=== PATIENT | female | born 1985 | race Caucasian/White ===

== ENCOUNTER → 2016-11-23 | Outpatient (REF) | payer OTHER ==
[~2016-11-23] MED LIST: ARTI99.0 OU; CLAR500T PO; CYMB60CA3 PO; FLAG500T PO; FLUT1SPR2; NORCOTAB PO; SENN1TAB2 PO; TYLE325T5 PO; ZYRT10TA2 PO
== END ==
LOC: M LAB REF 16:43
PROVIDERS: ATTEND Physician Assistant Medical
DX: N39.0 Urinary tract infection, site not specified (principal)

== ENCOUNTER → 2018-06-19 | Outpatient (CLI) | payer OTHER ==
[~2018-06-19] MED LIST changes: +HYDR-3715 PO; -NORCOTAB PO; -SENN1TAB2 PO; +SENN1TAB40 PO; +ZYRT10CA5 PO; -ZYRT10TA2 PO
[2018-06-19 10:23] LABS: BASO % 0.5 % (0.0-1.0); EOS # 0.1 10^3/uL (0.0-0.50); EOS % 1.5 % (0.0-3.0); HEMATOCRIT 40.4 % (36.0-47.0); HEMOGLOBIN 12.8 g/dl (12.0-15.5); LYMPH # 2.7 10^3/uL (1.5-4.5); LYMPH % 36.3 % (24.0-44.0); MEAN CORPUSCULAR HEMOGLOBIN 27.1 pg (27.0-33.0); MEAN CORPUSCULAR HGB CONC 31.7 g/dl (32.0-36.5); MEAN CORPUSCULAR VOLUME 85.4 fl (80.0-96.0); MONO # 0.5 10^3/uL (0.0-0.8); MONO % 6.6 % (0.0-5.0); NEUTROPHILS # 4.1 10^3/uL (1.8-7.7); NEUTROPHILS % 54.7 % (36.0-66.0); PLATELET COUNT, AUTOMATED 359 10^3/uL (150-450); RED BLOOD COUNT 4.73 10^6/uL (4.00-5.40); WHITE BLOOD COUNT 7.5 10^3/uL (4.0-10.0)
[2018-06-19 10:39] LABS: ALBUMIN 3.9 GM/DL (3.2-5.2); ALT/SGPT 24 U/L (12-78); BILIRUBIN,TOTAL 0.5 MG/DL (0.2-1.0); BLOOD UREA NITROGEN 11 MG/DL (7-18); CALCIUM LEVEL 8.9 MG/DL (8.5-10.1); CARBON DIOXIDE LEVEL 30 MEQ/L (21-32); CHLORIDE LEVEL 106 MEQ/L (98-107); CHOLESTEROL LEVEL 182 MG/DL (<200); CHOLESTEROL RISK RATIO 2.563 (<5); CREATININE FOR GFR 0.56 MG/DL (0.55-1.30); FREE T4 1.14 NG/DL (0.76-1.46); GLOMERULAR FILTRATION RATE > 60.0 (>60); GLUCOSE, FASTING 74 MG/DL (70-100); HDL CHOLESTEROL 71 MG/DL (>40); LDL CHOLESTEROL 88 MG/DL (<100); NON-HDL-C 111 MG/DL; POTASSIUM SERUM 4.3 MEQ/L (3.5-5.1); SODIUM LEVEL 140 MEQ/L (136-145); TOTAL PROTEIN 7.2 GM/DL (6.4-8.2); TRIGLYCERIDES LEVEL 117 MG/DL (<150)
[2018-06-19 11:27] LABS: HEMOGLOBIN A1c 5.1 %
== END ==
LOC: M SMT 08:08
PROVIDERS: ATTEND Physician Assistant
DX: R53.83 Other fatigue (principal)

== ENCOUNTER → 2018-07-06 | Outpatient (REF) | payer OTHER ==
[2018-07-10 14:16] LABS: HPV HYBRID CAPTURE II Negative (Negative)
== END ==
LOC: M LAB REF 13:28
PROVIDERS: ATTEND Advanced Practice Midwife
DX: Z12.4 Encounter for screening for malignant neoplasm of cervix (principal); R87.610 Atypical squamous cells of undetermined significance on cytologic smear of cervix (ASC-US)
CPT/HCPCS: 87624; G0123

== ENCOUNTER → 2019-07-19 | Outpatient (REF) | payer OTHER ==
[~2019-07-19] MED LIST changes: -ARTI99.0 OU; -CLAR500T PO; +CLAR500T97 PO; +POLYOPD OU; +SENN-53 PO; -SENN1TAB40 PO
== END ==
LOC: M SFHCWAGY 17:30
PROVIDERS: ATTEND Advanced Practice Midwife
DX: Z12.4 Encounter for screening for malignant neoplasm of cervix (principal)

== ENCOUNTER → 2019-11-22 | Outpatient (CLI) | payer OTHER ==
--- NOTE | 2019-11-27 12:43 | REP ---
RIGHT SHOULDER: 3-VIEWS HISTORY: Pain in the right shoulder. FINDINGS: The right glenohumeral and acromioclavicular joints are normally aligned. There is mild osteoarthritic hypertrophy at the superior aspect of the acromioclavicular (AC) joint. Periarticular soft tissues are unremarkable. No erosive changes seen. IMPRESSION: No acute bony abnormality. Mild osteoarthritic spurring at the acromioclavicular (AC) joint. Otherwise negative. MTDD
== END ==
LOC: M ADAMS 10:49
PROVIDERS: ATTEND Physician Assistant
DX: M25.511 Pain in right shoulder (principal)

== ENCOUNTER 2020-05-16 17:34 | Inpatient (IN) | payer OTHER ==
[~2020-05-16] VITALS: Ht 160 cm; Wt 111.0 kg
[2020-05-16] MEDS ORDERED: PERCOCET 5MG/325MG TAB PO ONE (17:45)
[2020-05-16] MEDS ORDERED: IBUPROFEN 400MG TAB PO ONE (17:45)
--- NOTE | 2020-05-16 18:13 | REP ---
INDICATION: fall COMPARISON: None. TECHNIQUE: There are four views FINDINGS: There is a trimalleolar fracture with lateral and posterior subluxation of the talus. Calcaneal plantar and Achilles spurs are incidentally noted. IMPRESSION: Negative . <Electronically signed by Hema Ortega > 05/16/20 2030
[2020-05-16] MEDS ORDERED: propofoL 200 MG/20 ML VIAL IV ONE (18:20)
[2020-05-16] MEDS ORDERED: ZOLP10TA2 PO (19:42)
[2020-05-16] MEDS ORDERED: FLUO40CA PO (19:42)
[2020-05-16] MEDS ORDERED: OMEP-221 PO (19:42)
[2020-05-16] MEDS ORDERED: FLUTISP (19:42)
[2020-05-16] MEDS ORDERED: ALPR0.5T3 PO (19:42)
[2020-05-16] MEDS ORDERED: MULTCHW12 PO (19:43)
--- NOTE | 2020-05-16 20:06 | CR.PDOC ---
General Date of Consultation: May 16, 2020 Consultation REASON FOR CONSULTATION/CHIEF COMPLAINT: Right ankle fracture HISTORY OF PRESENT ILLNESS: The patient reports that earlier today she was sitti ng on her couch and she got up from the couch and slipped on a linoleum-type floor which resulted in an ankle fracture. She was unable to weight-bear and was brought to the emergency room. She demonstrated a clear deformity of the right ankle with swelling. I was consulted by the emergency room for evaluation of a trimalleolar ankle fracture. She denies any previous injuries to her right ankle or any previous surgeries. ALLERGIES: Please see below. HOME MEDICATIONS: Please see below. PAST MEDICAL HISTORY: Noncontributory SOCIAL HISTORY: Marital status and/or living arrangements: Patient has a fianc and I believe that she is currently living with her mother as her fianc is currently deployed. Tobacco use: Denies REVIEW OF SYSTEMS: The patient denies any other symptoms other than that associated with the right ankle injury mentioned in the HPI. PHYSICAL EXAMINATION: The patient is alert and oriented to person, place and time. Constitutional: The patient appears their stated age. They are casually dressing, comfortable and cooperative, in no acute distress. Psychiatric: Appropriate affect with good eye contact. Ambulation: Nonambulatory due to fracture Head, ears, eyes, nose, and throat: Head is normocephalic, atraumatic. Eyes: Pupils equal. Sclerae anicteric. Mouth: Not assessed due to masking Neck: Supple with full range of motion. Skin: Clean, dry, and intact with no abrasions or ulcerations. Lungs: Breathing is unlabored with symmetric chest expansion on inspiration. Cardiovascular: Palpable posterior and dorsalis pedis pulse. Capillary refill is less than 3 seconds. Neurologic: The patient is able to grossly move the right toes with pain and discomfort. Sensation is intact to light touch in the L4-S1 dermatome distribution to the right foot. Lymph: No palpable popliteal lymphadenopathy. Musculoskeletal: The right foot and ankle was examined. On inspection, there was a small 1 mm area of scabbing which did not appear to be associated with an open or puncture type injury. He was abrasion of the skin in this area as well. There was some swelling about the ankle, but this was minimal. Moderate. There is no significant bruising at this time. The ankle was held in a dorsiflexed position. Please see above. With regards to neurovascular examination. Examination of the right ankle was limited secondary to pain. There was an obvious deformity noted to the ankle. LABORATORY DATA: Please see below. X-ray: X-ray imaging was independently reviewed by myself. This demonstrated a displaced trimalleolar ankle fracture with less than 25% involvement of the posterior malleolus. There was a medial malleolus fragment, which was completely displaced. Was possible fragmentation. There is also a lateral fibular fracture. There was oblique and distal, roughly at the level of the joint line. There is also noted to be some dorsiflexion with some subluxation of the talus within the ankle mortise. ASSESSMENT/PLAN: 1. This patient demonstrates a right ankle trimalleolar fracture with associated instability and subluxation of the talus within the ankle mortise. I had a discussion with the patient with regards to the plan. I did explain that trimalleolar ankle fractures are unstable fractures that are best treated with open reduction and internal fixation. To reduce the risk of neurovascular compromise and swelling as well as risks of compartment syndrome. I stated that we would be performing a closed reduction and splinting. I explained that the risks of this procedure included but were not limited to, neurovascular compromise, compartment syndrome, skin irritation or damage are otherwise associated with the splinting. The fracture itself. Once the patient at an increased risk for blood or fat emboli as well as ankle arthritis. The patient consented to the close reduction under conscious sedation. Procedure: After a timeout was performed, the patient underwent conscious sedation as provided by the emergency room staff. Once the patient had the conscious sedation, I was assisted in performing a closed reduction. The patient's right leg was brought into knee flexion with manipulation of the ankle by grasping the great toe. This help with the reduction, but it was noted that there was a little bit of difficulty maintaining the foot and ankle in a neutral position. I suspected that there may be some soft tissue interposition in the tibiotalar joint. The foot was brought into slight internal rotation and the fracture was compressed and held in position until the splinting material, which was applied dried. The skin was wrapped in [place] with the bony prominences being padded. The back slab and sugar tong slab was applied and the ankle was held in return reduced and compressed position. As the plaster cured. This was covered and web roll and then a tensor dressing was loosely applied over this. By the end of the splinting, the patient was aware and talking. She was able to confirm that she was neurovascularly intact grossly and able to move her toes with a Refill less than 3 seconds and sensation intact to the deep peroneal nerve distribution. X-ray imaging was obtained in the emergency room. This demonstrated on the AP that the ankle mortise appeared to be restored. There did appear to be a small piece of comminution off the medial malleolus. The lateral view did show that the foot was in equinus and there is still some increased joint space in the tibiotalar joint. I suspect there may be some soft tissue interposition. Due to the increased space at the tibiotalar joint, I would like to admit the patient and book her for surgery tomorrow morning, so that she has not lost to follow-up as the reduction is most important in decreasing the risk of developing posttraumatic arthritis. The emergency room provider stated that they will contact the hospitalist service for admission of the patient. The patient is unable to have surgical intervention this evening as she last ate pizza at approximately 1600 hrs., the patient was instructed to be nothing by mouth at midnight. Advised to rest, elevate and ice the right lower extremity. CSM checks will be performed. The patient will be on-call to the OR tomorrow morning for open reduction and internal fixation. The emergency room provider stated that they would order COVID testing Of note, prior to the closed reduction and splinting. I obtained consent from the patient for open reduction and internal fixation of the right ankle. The risks of this procedure include but are not limited to infection, blood loss, neurovascular damage including foot drop and loss of sensation, fracture and need for revision surgery or additional surgeries. There are also risks associated with compartment syndrome, and development of posttraumatic arthritis. The patient was also consented for blood transfusion. Thank you for referring this patient to my care, This document contains text that was generated through computerized voice- recognition software. Despite it being proofread, undetected computer-generated errors may exist. Please contact our office at [phone] if any clarification or correction is required. Vital Signs/I&O Vital Signs Date Time Temp Pulse Resp B/P (MAP) Pulse Ox O2 Delivery O2 Flow Rate FiO2 05/16/20 19:25 144/78 (100) 05/16/20 19:24 103 96 05/16/20 19:20 18 Room Air 05/16/20 19:10 4.0 05/16/20 17:44 98.5 Laboratory Data Labs 24H Laboratory Tests 2 05/16/20 18:43: POC Beta HCG, Quantitative < 5.0 Allergies Coded Allergies: Sulfa (Sulfonamide Antibiotics) (Verified Allergy, Unknown, 05/16/20) cefaclor (Verified Allergy, Unknown, 05/16/20) sulfamethoxazole (Verified Allergy, Unknown, 05/16/20) trimethoprim (Verified Allergy, Unknown, 05/16/20) Home Medications Scheduled Fluoxetine Hcl (Fluoxetine HCl) 40 Mg Capsule, 40 MG PO DAILY, (Reported) Fluticasone Propionate (Fluticasone Propionate) 16 Gm [place].susp, 2 SPRAYS NA DAILY, (Reported) Folic Acid/Multivit-Min/Lutein (Multi-Vitamin Gummies) 1 Each Tab.chew, 1 CHW PO DAILY, (Reported) Omeprazole (Omeprazole) 40 Mg Capsule.dr, 40 MG PO DAILY, (Reported) Scheduled PRN Alprazolam (Alprazolam) 0.5 Mg Tablet, 0.5 MG PO BID PRN for ANXIETY, (Reported) Zolpidem Tartrate (Zolpidem Tartrate) 10 Mg Tablet, 10 MG PO QHS PRN for SLEEP, (Reported) HERMAN SCHREIBER MD May 16, 2020 20:06
[2020-05-16] MEDS ORDERED: ONDANSETRON 4MG/2ML VIAL IV ONE (20:30)
[2020-05-16] MEDS ORDERED: MORPHINE 4 MG/ML 1ML VIAL/SYRINGE (J2270) IV PRN (20:30)
[2020-05-16 20:43] LABS: HEMATOCRIT 38.2 % (36.0-47.0); HEMOGLOBIN 12.2 g/dl (12.0-15.5); MEAN CORPUSCULAR HEMOGLOBIN 27.4 pg (27.0-33.0); MEAN CORPUSCULAR HGB CONC 31.9 g/dl (32.0-36.5); MEAN CORPUSCULAR VOLUME 85.8 fl (80.0-96.0); PLATELET COUNT, AUTOMATED 353 10^3/uL (150-450); RED BLOOD COUNT 4.45 10^6/uL (4.00-5.40); WHITE BLOOD COUNT 9.2 10^3/uL (4.0-10.0)
[2020-05-16 21:11] LABS: INR 0.88; PROTHROMBIN TIME 12.1 SECONDS (12.5-14.3)
[2020-05-16 21:14] LABS: ALBUMIN 3.4 GM/DL (3.2-5.2); ALT/SGPT 43 U/L (12-78); BILIRUBIN,DIRECT 0.1 MG/DL (0.0-0.2); BILIRUBIN,TOTAL < 0.1 MG/DL (0.2-1.0); BLOOD UREA NITROGEN 9 MG/DL (7-18); CALCIUM LEVEL 7.9 MG/DL (8.5-10.1); CARBON DIOXIDE LEVEL 22 MEQ/L (21-32); CHLORIDE LEVEL 110 MEQ/L (98-107); CREATININE FOR GFR 0.43 MG/DL (0.55-1.30); GLOMERULAR FILTRATION RATE > 60.0 (>60); GLUCOSE, FASTING 96 MG/DL (70-100); POTASSIUM SERUM 4.1 MEQ/L (3.5-5.1); SODIUM LEVEL 141 MEQ/L (136-145); TOTAL PROTEIN 6.7 GM/DL (6.4-8.2)
[2020-05-16 21:21] LABS: RSV AMPLIFICATION NEGATIVE (NEGATIVE)
[2020-05-16] MEDS ORDERED: ACETAMINOPHEN TAB 650MG DOSE (2X325MG) PO PRN (21:35)
[2020-05-16] MEDS ORDERED: ONDANSETRON 4MG/2ML VIAL IV PRN (21:35)
[2020-05-16] MEDS ORDERED: MAALOX 30 ML SUSP *UDC PO PRN (21:35)
[2020-05-16] MEDS ORDERED: MOM 30ML SUSPENSION UDC PO PRN (21:35)
[2020-05-16] MEDS ORDERED: MORPHINE 2 MG/ML 1ML VIAL (J2270) IV PRN (21:35)
--- NOTE | 2020-05-16 21:46 | HPEPDOC ---
[facility] Medical History & Physical Date of Admission May 16, 2020 Date of Service: May 16, 2020 Attending Physician: DONOVAN BREWER MD History and Physical CHIEF COMPLAINT: fall HISTORY OF PRESENT ILLNESS: 34 year old female who presented to the ED after a mechanical fall today. She states she got up from the couch and was walking across a linoleum floor when she felt her ankle roll and she fell down. She denies any lightheadedness or dizziness before the fall. She states she had a sharp sudden pain in her ankle as she began to fall down. She states she was unable to bear weight on her right foot after the fall. She denies any additional injuries or hitting her head during the fall. She denies any other recent falls or injuries. She denies any prior broken bones. She does report having 2-3 glasses of wine today prior to the fall but does not feel she was intoxicated. PAST MEDICAL HISTORY: Depression/Anxiety GERD Insomnia PAST SURGICAL HISTORY: Cholecystectomy SOCIAL HISTORY: Never smoker. Drinks 2-3 glasses of wine on some weekends, no daily alcohol intake. Denies IVDA or illicit substance use. Lives at home with her son and one dog. FAMILY HISTORY: Reviewed and noncontributory ALLERGIES: Please see below. REVIEW OF SYSTEMS: CONSTITUTIONAL: Denies fevers, chills, night sweats, fatigue, unexpected change in weight. HEENT: Denies change in vision, change in hearing. CARDIOVASCULAR: Denies chest pain, palpitations, shortness of breath, lightheadedness. RESPIRATORY: Denies dyspnea, cough, wheezing. GASTROINTESTINAL: Denies nausea, vomiting, abdominal pain, diarrhea, constipation, blood in stool. GENITOURINARY: Denies dysuria, urinary frequency, urinary urgency. SKIN: Denies rash, lesions. MUSCULOSKELETAL: Per HPI. NEUROLOGICAL: Denies headache, dizziness, weakness. PSYCHIATRIC: Denies change in mood. HOME MEDICATIONS: Please see below. PHYSICAL EXAMINATION: VITAL SIGNS: see below GENERAL: Alert, comfortable, in no acute distress HEENT: Normocephalic, atraumatic, sclera anicteric, moist mucous membranes NECK: Supple, trachea midline, no lymphadenopathy CARDIOVASCULAR: Regular rate and rhythm, normal S1 and S2. No murmurs, rubs, or gallops RESPIRATORY: Clear to auscultation bilaterally with equal air entry bilaterally. No wheezing, rhonchi, or rales. ABDOMEN: Soft, nontender, nondistended, bowel sounds present. EXTREMITIES: Right leg wrapped in a splint and cassidy bandage. Cap refill less than two seconds in bilateral fingers and toes. NEUROLOGIC: Alert and oriented x3 to person, place and time. No focal deficits appreciated PSYCHIATRIC: Mood and affect appropriate LABORATORY DATA: See below. IMAGING: (per radiologist report) - Ankle XR: There is a trimalleolar fracture with lateral and posterior subluxation of the talus. MICROBIOLOGY: Please see below. ASSESSMENT: 34 year old female who presented after a mechanical fall found to have trimalleolar fracture on the right ankle admitted for possible surgical reduction. PLAN: 1. Trimalleolar fracture on the right ankle - s/p closed reduction with splinting in the ED - plan for ORIF by Dr. Engle/orthopedic surgery tomorrow AM - NPO for surgery. IV morphine overnight for pain. IV zofran for nausea 2. Depression/anxiety - hold home meds while NPO 3. GERD - hold home meds while NPO DVT prophylaxis: teds/scds on left leg preop, hold on medical prophylaxis preop. Disposition: admitted inpatient to med/surg pending surgical intervention Vital Signs Vital Signs Date Time Temp Pulse Resp B/P (MAP) Pulse Ox O2 Delivery O2 Flow Rate FiO2 05/16/20 20:50 18 05/16/20 20:25 101 150/83 (105) 97 Room Air 05/16/20 19:10 4.0 05/16/20 17:44 98.5 Laboratory Data Labs 24H Laboratory Tests 2 05/16/20 18:43: POC Beta HCG, Quantitative < 5.0 05/16/20 20:35: Nucleated Red Blood Cells % (auto) 0.0, Prothrombin Time 12.1, Prothromb Time In ternational Ratio 0.88, Anion Gap 9, Glomerular Filtration Rate > 60.0, Calcium Level 7.9L, Direct Bilirubin 0.1, Aspartate Amino Transf (AST/SGOT) 75H, Alanine Aminotransferase (ALT/SGPT) 43, Alkaline Phosphatase 85, Total Protein 6.7, Albumin 3.4, Albumin/Globulin Ratio 1.0L, Coronavirus (COVID-19)(PCR) NEGATIVE, Influenza Type A (RT-PCR) NEGATIVE, Influenza Type B (RT-PCR) NEGATIVE, Respiratory Syncytial Virus (PCR) NEGATIVE CBC/BMP Laboratory Tests 05/16/20 20:35 Home Medications Scheduled Fluoxetine Hcl (Fluoxetine HCl) 40 Mg Capsule, 40 MG PO DAILY Fluticasone Propionate (Fluticasone Propionate) 16 Gm [place].susp, 2 SPRAYS NA DAILY Folic Acid/Multivit-Min/Lutein (Multi-Vitamin Gummies) 1 Each Tab.chew, 1 CHW PO DAILY Omeprazole (Omeprazole) 40 Mg Capsule.dr, 40 MG PO DAILY Scheduled PRN Alprazolam (Alprazolam) 0.5 Mg Tablet, 0.5 MG PO BID PRN for ANXIETY Zolpidem Tartrate (Zolpidem Tartrate) 10 Mg Tablet, 10 MG PO QHS PRN for SLEEP Allergies Coded Allergies: Sulfa (Sulfonamide Antibiotics) (Verified Allergy, Unknown, 05/16/20) cefaclor (Verified Allergy, Unknown, 05/16/20) sulfamethoxazole (Verified Allergy, Unknown, 05/16/20) trimethoprim (Verified Allergy, Unknown, 05/16/20) GME ATTESTATION GME ATTESTATION My faculty preceptor for this patient encounter was physically present during the encounter and was fully available. All aspects of the patient interview, examination, medical decision making process, and medical care plan development were reviewed and approved by the faculty preceptor. The faculty preceptor is aware and concurs with the plan as stated in the body of this note and will attest to such by his/her cosignature. ATTENDING NOTE TIME OF SERVICE 905PM is a 34 yr old w a hx of depression/anxiety, GERD and class 2 obesity who slipped and developed a trimalleolar fx; she will be admitted for surgical management of the later. Plan: OR tomorrow per Rest per 's H&P RITU MARTIN D.O. May 16, 2020 21:46 DONOVAN BREWER MD May 16, 2020 23:21
[2020-05-16 22:50] VITALS: BP 146/83
[2020-05-17] VITALS (10 sets, daily range): BP systolic 124–158; BP diastolic 71–93; O2SAT 97–99
[2020-05-17] MEDS: MORPHINE 2 MG/ML 1ML VIAL (J2270) IV PRN ×2 (02:42→07:35)
[2020-05-17 07:10] LABS: HEMATOCRIT 36.1 % (36.0-47.0); HEMOGLOBIN 11.5 g/dl (12.0-15.5); MEAN CORPUSCULAR HEMOGLOBIN 27.3 pg (27.0-33.0); MEAN CORPUSCULAR HGB CONC 31.9 g/dl (32.0-36.5); MEAN CORPUSCULAR VOLUME 85.7 fl (80.0-96.0); PLATELET COUNT, AUTOMATED 329 10^3/uL (150-450); RED BLOOD COUNT 4.21 10^6/uL (4.00-5.40); WHITE BLOOD COUNT 8.3 10^3/uL (4.0-10.0)
--- NOTE | 2020-05-17 07:25 | REP ---
INDICATION: post reduction COMPARISON: Acute right ankle series dated 05/16/2020 TECHNIQUE: A two views post reduction. FINDINGS: There is a plaster cast stabilizing the trimalleolar fracture/subluxation in satisfactory position and alignment. The lateral view there is widening of the tibiotalar joint anteriorly. IMPRESSION: /a cast stabilizing the trimalleolar fracture/subluxation as described. <Electronically signed by Hema Ortega > 05/17/20 [id number]
--- NOTE | 2020-05-17 07:26 | REP ---
INDICATION: pre op. COMPARISON: None TECHNIQUE: Portable AP chest with the patient sitting FINDINGS: The lung tolbert are clear. Cardiac size is normal. The pb, mediastinum and skeletal structures are unremarkable. IMPRESSION: Essentially negative portable chest. <Electronically signed by Hema Ortega > 05/17/20 [id number]
[2020-05-17 07:34] LABS: BLOOD UREA NITROGEN 8 MG/DL (7-18); CALCIUM LEVEL 8.2 MG/DL (8.5-10.1); CARBON DIOXIDE LEVEL 27 MEQ/L (21-32); CHLORIDE LEVEL 106 MEQ/L (98-107); CREATININE FOR GFR 0.46 MG/DL (0.55-1.30); GLOMERULAR FILTRATION RATE > 60.0 (>60); GLUCOSE, FASTING 77 MG/DL (70-100); POTASSIUM SERUM 3.9 MEQ/L (3.5-5.1); SODIUM LEVEL 139 MEQ/L (136-145)
[2020-05-17] MEDS: DOCUSATE SODIUM 100MG CAPSULE PO SCH ×2 (07:35→20:54)
[2020-05-17] MEDS ORDERED: MIDAZOLAM INJ 2MG/2ML VIAL (J2250 PER 1MG) As Ordered ONE ×3 (07:50→12:15)
[2020-05-17] MEDS ORDERED: LIDOCAINE 2% 100MG/5ML SDV (FOR ANES.) As Ordered ONE (07:50)
[2020-05-17] MEDS ORDERED: propofoL 200 MG/20 ML VIAL As Ordered ONE ×6 (07:50→13:16)
[2020-05-17] MEDS ORDERED: ROCURONIUM BROMIDE 50 MG/5 ML VIAL As Ordered ONE (07:50)
[2020-05-17] MEDS ORDERED: fentaNYL 250 MCG/5 ML INJECTION (J3010) As Ordered ONE (07:50)
--- NOTE | 2020-05-17 08:21 | ECGEPIP ---
[facility] - ED Test Date: 2020-05-16 Pat Name: ANDRES BUSTAMANTE Department: Room: [place] [address] Gender: Female [employer] Equipment Operator: ZACHARY : 1985 Requested By: MORE CARMONA Order Number: [id number] Reading MD: Linda Chen Measurements Intervals [place] Rate: 98 P: 32 CO: 160 QRS: 39 QRSD: 90 T: -2 QT: 360 QTc: 459 Interpretive Statements Normal sinus rhythm Cannot rule out Anterior infarct , age undetermined NSTTW abnormalities similar 11/07/15 Electronically Signed on 05-17-2020 8:20:37 EDT by Linda Chen
--- NOTE | 2020-05-17 09:30 | IPNPDOC ---
Text Note Date of Service The patient was seen on 05/17/20. NOTE SUBJECTIVE: -Pain is well controlled -NPO for surgery OBJECTIVE: VITAL SIGNS: see below GENERAL: Alert, comfortable, in no acute distress HEENT: Normocephalic, atraumatic, sclera anicteric, moist mucous membranes NECK: Supple, trachea midline, no lymphadenopathy CARDIOVASCULAR: Regular rate and rhythm, normal S1 and S2. No murmurs, rubs, or gallops RESPIRATORY: Clear to auscultation bilaterally with equal air entry bilaterally. No wheezing, rhonchi, or rales. ABDOMEN: Soft, nontender, nondistended, bowel sounds present. EXTREMITIES: Right leg wrapped in a splint and cassidy bandage. WWP, good <2sec cap refill. NEUROLOGIC: Alert and oriented x3 to person, place and time. No focal deficits appreciated PSYCHIATRIC: Mood and affect appropriate LABORATORY DATA: Reviewed IMAGING: - Ankle XR: There is a trimalleolar fracture with lateral and posterior subluxation of the talus. MICROBIOLOGY: Please see below. ASSESSMENT: 34 year old W who presented after a mechanical fall and was found to have trimalleolar fracture on the right ankle admitted for surgical intervent ion. PLAN: 1. Trimalleolar fracture on the right ankle - s/p closed reduction with splinting in the ED - plan for ORIF by Dr. Engle/orthopedic surgery tthis AM - NPO for surgery. -V morphine PRN for pain. -IV zofran PRN for nausea 2. Depression/anxiety - continue home meds 3. GERD - continue home meds DVT prophylaxis: teds/scds on left leg preop. Will start heparin ppx postop Disposition: med/surg pending surgical intervention VS,Jorden, I+O VS, Jayashreee, I+O Laboratory Tests 05/16/20 20:35 05/17/20 06:26 Vital Signs Date Time Temp Pulse Resp B/P (MAP) Pulse Ox O2 Delivery O2 Flow Rate FiO2 05/17/20 07:45 16 05/17/20 06:00 97.8 76 124/71 (88) 98 Room Air 05/16/20 19:10 4.0 I&O- Last 24 Hours up to 6 AM 05/17/20 06:00 Intake Total 240 ml Output Total 1500 ml Balance -1260 ml CARLITO VARMA MD May 17, 2020 08:41
[2020-05-17 09:38] LABS: HEMOGLOBIN A1c 4.9 %
[2020-05-17] MEDS ORDERED: ceFAZolin 2 GM/D5W 50 ML IV BAG (J0690 PER 500MG) As Ordered ONE (09:57)
[2020-05-17] MEDS ORDERED: BUPIVACAINE/EPIN 0.5% 30 ML VIAL As Ordered ONE (09:58)
[2020-05-17] MEDS ORDERED: propofoL 500 MG/50 ML VIAL As Ordered ONE (11:06)
[2020-05-17] MEDS ORDERED: ACETAMINOPHEN 1000MG 100ML IV BTL (OFIRMEV) (J0131 PER 10MG) As Ordered ONE (11:12)
[2020-05-17] MEDS ORDERED: KETAMINE HCL 200 MG/20 ML VIAL As Ordered ONE (12:14)
[2020-05-17] MEDS ORDERED: HYDROmorphone HCL 2 MG/ML 1ML VIAL (J1170) As Ordered ONE (13:29)
--- NOTE | 2020-05-17 13:31 | REP ---
INDICATION: ORIF IN OR COMPARISON: 05/16/2020. TECHNIQUE: There are 3 intraoperative fluoroscopic views. FINDINGS: There is internal fixation of the distal fibula with a compression plate. There is internal fixation of the medial malleolus malleolus with 2 cannulated screws. The talar tilting and subluxation has been satisfactory reduced. The mortise is symmetric. Position and alignment of the fractures is satisfactory. Fluoroscopic exposure time is 109 seconds. IMPRESSION: Satisfactory open reduction and internal fixation of the right ankle. <Electronically signed by Hema Ortega > 05/17/20 [id number]
[2020-05-17] MEDS ORDERED: ONDANSETRON 4MG/2ML VIAL IV PRN (14:00)
[2020-05-17] MEDS ORDERED: fentaNYL 100 MCG/2 ML INJECTION (J3010) IV PRN (14:00)
[2020-05-17] MEDS ORDERED: oxyCODONE 5MG TAB PO PRN ×2 (14:00→16:45)
[2020-05-17] MEDS ORDERED: LR 1,000 ML IV SCH (14:00)
--- NOTE | 2020-05-17 14:19 | REP ---
INDICATION: s/p ORIF, please perform AP/Lat and mortise view COMPARISON: 05/16/2020 TECHNIQUE: There are three views performed portably. FINDINGS: There is internal fixation of the distal fibula with a compression plate. There is internal fixation of the medial malleolus with 2 cannulated screws. The posterior malleolus is in satisfactory position and alignment. The talar subluxation is been reduced. The mortise is symmetric. There is a plaster splint. IMPRESSION: The fractures are maintained in satisfactory position and alignment. The talar subluxation is been satisfactorily reduced. <Electronically signed by Hema Ortega > 05/17/20 [id number]
--- NOTE | 2020-05-17 14:47 | ROOPDOC ---
[facility] Report Of Operation Report of Operation DATE OF PROCEDURE: 05/17/20 PREPROCEDURE DIAGNOSES: Right ankle trimalleolar fracture POSTPROCEDURE DIAGNOSES: Right ankle trimalleolar fracture with noted due to comminution to the fibula and at the anteromedial angle of the ankle mortise. PROCEDURE: Open reduction and internal fixation of right ankle bimalleolar fracture Plate and screw fixation of lateral malleolus. Screw fixation of medial malleolus. Fluoroscopic examination of the syndesmosis joint. Limited direct examination and inspection of the tibiotalar joint SURGEON: Matt Schreiber MD AIRPLANE TECHNICIAN: Sandie Bill CST ANESTHESIA: Spinal ESTIMATED BLOOD LOSS: Approximately less than 150 mL COMPLICATIONS: No known complications REMARKS: ICD 10 modifier 22:50% more time and 50% more physical effort was utilized during this procedure. As a result of the fracture pattern and comminution. Components: A 3-hole [place] very asked distal fibular plate was utilized. A 3.5 mm screws included 210 mm screws, one 12 mm screw, 3, 14 mm screws and one 16 mm screw. The cannulated screws included 2, 4 x 42 mm screws. Tourniquet time was 37 minutes. It was only inflated for a short portion of the procedure, due to the fact that it was creating a venous tourniquet. PROCEDURE NOTE: The patient was seen in the preoperative area and her consent and her right lower extremity were reviewed and marked. DESCRIPTION OF PROCEDURE: The patient was brought to the operating room and after a timeout was performed. A spinal anesthetic was carried out. The patient was transferred to the table and positioned appropriately with appropriate padding and safety straps and measures. The splint was removed. The right leg was cleansed with chlorhexidine soap followed by an alcohol swab. She then had 2 chlorhexidine preps of the right foot and ankle, as performed by the nursing staff. The right lower extremity was prepped and draped in the standard sterile fashion. A tourniquet was applied and inflated as noted above. The patient received IV Ancef 2 g prior to incision. After a timeout and surgical safety checklist was performed, the medial and lateral malleoli were demarcated with a marker. A more posterior based incision was outlined. The skin was incised and dissecting scissors were used to go through layer by layer. There was a structure that couldn't possibly have been the superficial peroneal nerve that was crossing. However, this was more posterior than would've been anticipated. I protected this. Regardless, and it was taken anteriorly. The fracture site was identified. It was a very short oblique fracture with a spike posteriorly, which seemed to have a little bit of plastic deformity formation. There is also noted to be a rent in the peroneal fascia with some muscle herniating through. This was repaired with a #1 Vicryl suture. At the end of the case. Once the bone was identified, the periosteal elevator was used to elevate the soft tissues off the bone. Sharp dissection was used to clear the ends of the fracture with a 15 blade to remove soft tissue from getting stuck in the fracture site. The fracture was displaced and a dental pick was used to remove some material from the fracture site. This included clot and bony material. This was irrigated out. It was noted that the anterior aspect of the fibula had some comminution associated with it, possibly associated with soft tissue avulsion. The fracture pattern and made it slightly difficult to get an appropriate reduction. Some time was spent on this. Once that was achieved, it was held in position with the sharp reduction forceps. A 3.5 drill was used to overdrill the near cortex and an anterior to posterior fashion for lag screw by technique. This was then drilled with the 2.6 drill through the far cortex. A measuring device was utilized. A 22 mm screw was placed. A 3-hole distal fibula, very asked plate was chosen. This was appropriately positioned and secured with the first screw proximal to the fracture. An AP view on x-ray showed that the plate was too distal. Therefore, the screw was removed and the plate was shifted proximally. This was then secured with a fine K wire. The proximal screw to lag the plate down to the bone was chosen, again at a different site and resecured. This appeared to be in appropriate position on the AP view of the x-ray. It was noted that there was some slight anterior shift of the plate at the proximal end. However, this appeared to be where the precontoured plate had the best contact. The proximal nonlocking screws were drilled and placed. The distal 3 holes were then drilled and measured for the locking screws. When the final locking screws were placed. It was noted that the fracture site had torqued about a millimeter. I tried removing several screws and repositioning them to see if this could be corrected, but ultimately, I decided to remove the construct. This was not happy with that degree of displacement of the fracture. I spent some additional time retracting the change in the reduction to get it as near anatomic as possible. This involved utilization of a K wire as well as a reduction forceps. It was noted that the lag screw was loosening up, so this was removed. Fluoroscopy was again utilized to get the correct position of the plate to ensure that there was no overhang. This was again secured with a K wire. A locking screw was utilized to hold the plate in a compressed position. The posi tion was checked on AP and lateral fluoroscopy and found to be acceptable. The proximal 3 holes of the very asked plate were filled with locking screws to prevent any torque of the plate, which could displace the fracture. Locking screws were also placed distally. This resulted in a much more acceptable position of the distal fibular fracture, although there was still some displac ement of the posterior spike by a millimeter or 2. This was deemed acceptable. Under fluoroscopy, the syndesmosis joint was then tested with a sharp reduction forceps. There did not appear to be any opening of the syndesmosis joint. The lateral side was cleansed with several bulb syringes of normal sterile saline. Due to the fact that the patient was at risk for swelling of the soft tissues associated with the injury, I made the decision to close the lateral side prior to moving to the medial side. The superficial peroneal nerve-like structure was protected at the proximal portion without any sutures wrapped around or through it. #1 Vicryl was used to close the wound down in an interrupted manner. #1 Vicryl was also used to loosely cover the plate with the soft tissues. This was done using an interrupted suture. 2. 0 Vicryl was then used to close down the subcutaneous region followed by 3.0 antibacterial Monocryl for the subcuticular stitch. 0.5% Marcaine was used with epi for local anesthetic in the area of this incision. Attention was then turned to the medial aspect. Using fluoroscopy, the fracture site was identified with a freer. This area was marked on the skin with a skin marker and a curvilinear incision was made. The skin was incised and then the d issection scissors were used to carefully dissect down to the bone. Once the fracture site was identified. The subperiosteal elevator was used to remove some of the soft tissues from this area. A 15 blade was used to remove the soft tissues from the edges of the fracture site. The fracture site was opened. The intra-articular portion was examined. There was a cyst area where there was some flakes of some articular cartilage and some small pieces of comminuted bone at the corner of the ankle mortise. I did not see any obvious signs of impaction. However, visualization was limited. I removed the debris. The superior medial border of the talus also had a small area where there was some damage to the articular cartilage which was not full-thickness. I used a bulb syringe. Refilled several times to irrigate any debris from within the tibiotalar joint. A drill hole was made superficially in the proximal tibia on the medial aspect help with the reduction. After additional clearing of soft tissue is able to position the medial malleolus fracture fragment such that the fracture line was no longer easily appreciated. The sharp reduction forceps were used to compress this. There appeared to be a smooth border at the fracture site suggesting a good reduction on visualization and palpation. This was confirmed under fluoroscopy. Using the cannulated screw system, a K wire was advanced and the position was checked under fluoroscopy. The first K wire had good position. I did have to reposition the second K wire a few times as it was skydiving away from the cortical bone. I advanced the 40 mm cannulated screw, which was self drilling and self-tapping. With this in position. I reposition the second K wire and repeated the process with an additional 40 mm cannulated screw that was self drilling and self-tapping. This should've these 2 screws was divergent but appeared to be in good position on x-ray in both the AP and lateral films. AP and lateral fluoroscopic imaging of the ankle was then carried out. There appeared to be a good mortise view with no significant asymmetry noted. I did not notice any obvious loose bodies within the intra-articular portion of the joint. The posterior malleolus fracture appeared to close down and involve less than 25% of the surface of the bone without really seeming to involve any portion of the articular surface. There was no need to fix this posterior malleolar avulsion fracture. Having confirmed appropriate position on AP and lateral x-ray imaging, the medial wound was irrigated with normal sterile saline. #1 Vicryl sutures were used to close and approximate the subcutaneous tissue. A 2. 0 running Vicryl suture was then utilized followed by a subcuticular 3.0 antibacterial Monocryl suture. Additional 0.5% Marcaine with epinephrine was instilled into the soft tissue surrounding the medial incision. The wound edges were cleansed and Steri- Strips were applied to both sides. Adaptic and Telfa and Tegaderm dressings were applied to the medial lateral aspects. These were covered with ABDs pads. This was loosely wrapped with web roll and the patient was placed in a splint with a sugar tong and back slab splint. The patient was taken to the recovery room after anesthetic was reversed. She was seen in the recovery room and she was responsive and doing quite well. She was able to move her toes. She appeared to have Refill less than 3 seconds and she had sensation in the first webspace of her foot. Postoperative plan: The patient will be admitted back to the [facility]. I have written instructions for pain medications including oxycodone. She will receive 1 dose of IV antibiotic prior to discharge. The patient may be discharged home when stable. She should be discharged on oxycodone pain medication, and baby aspirin 81 mg by mouth twice daily for approximately 2 weeks. She may also take [id number] Tylenol and anti-inflammatories as needed. I have written for crutch instructions. She is to be nonweightbearing to right lower extremity for 6 weeks. She should rest, ice and elevate her right lower extremity at all times. She is not to get the splint wet. She will be seen in my office for reassessment in 2 weeks' time. At that point, the splint and the dressing will be taken down. She may be placed in a cast time or more likely a walking boot to remain nonweightbearing for the full 6 weeks. She will get x-ray imaging upon visiting the office as well. Her dressings will be taken down When She is seen in the office. There are no sutures that need to be removed. MATT SCHREIBER MD May 17, 2020 14:47
[2020-05-17] MEDS ORDERED: NS 1,000 ML IV SCH (16:45)
[2020-05-17] MEDS: oxyCODONE 5MG TAB PO PRN (16:47)
[2020-05-17] MEDS ORDERED: ceFAZolin SOD 1 GM in D5W MINI-BAG PLUS 50 ML IV SCH (16:50)
[2020-05-17] MEDS ORDERED: ceFAZolin SOD 1 GM in D5W MINI-BAG PLUS 50 ML IV ONE (18:00)
[2020-05-17] MEDS: ASPIRIN 81 MG CHEW TABLET PO SCH (20:54)
[2020-05-18 01:55] VITALS: BP 128/68
[2020-05-18] MEDS: oxyCODONE 5MG TAB PO PRN ×2 (01:59→08:01)
[2020-05-18 06:00] VITALS: BP 136/86
[2020-05-18 06:54] LABS: HEMATOCRIT 34.7 % (36.0-47.0); HEMOGLOBIN 10.8 g/dl (12.0-15.5); MEAN CORPUSCULAR HEMOGLOBIN 27.1 pg (27.0-33.0); MEAN CORPUSCULAR HGB CONC 31.1 g/dl (32.0-36.5); MEAN CORPUSCULAR VOLUME 87.2 fl (80.0-96.0); PLATELET COUNT, AUTOMATED 307 10^3/uL (150-450); RED BLOOD COUNT 3.98 10^6/uL (4.00-5.40); WHITE BLOOD COUNT 10.4 10^3/uL (4.0-10.0)
[2020-05-18 07:24] LABS: BLOOD UREA NITROGEN 8 MG/DL (7-18); CALCIUM LEVEL 8.4 MG/DL (8.5-10.1); CARBON DIOXIDE LEVEL 27 MEQ/L (21-32); CHLORIDE LEVEL 103 MEQ/L (98-107); CREATININE FOR GFR 0.43 MG/DL (0.55-1.30); GLOMERULAR FILTRATION RATE > 60.0 (>60); GLUCOSE, FASTING 85 MG/DL (70-100); POTASSIUM SERUM 3.8 MEQ/L (3.5-5.1); SODIUM LEVEL 138 MEQ/L (136-145)
[2020-05-18] MEDS: ASPIRIN 81 MG CHEW TABLET PO SCH (08:00)
[2020-05-18] MEDS: DOCUSATE SODIUM 100MG CAPSULE PO SCH (08:00)
[2020-05-18] MEDS ORDERED: OXYC-517 PO (09:15)
[2020-05-18] MEDS ORDERED: ASPI81CH8 PO (09:15)
--- NOTE | 2020-05-18 09:33 | DS.PDOC ---
Discharge Summary General Date of Admission May 16, 2020 at 21:00 Date of Discharge 05/18/2020 Attending Physician: CARLITO VARMA MD Discharge Summary PROCEDURES PERFORMED DURING STAY: Closed reduction of R ankle fracture in the ED, then R ankle ORIF on 05/17/2020 ADMITTING DIAGNOSES: R ankle fracture DISCHARGE DIAGNOSES: Right ankle trimalleolar fracture Depression/Anxiety GERD Insomnia COMPLICATIONS/CHIEF COMPLAINT: Trimalleolar Fracture. HISTORY OF PRESENT ILLNESS: 34 year old W who presented to the ED after a mechanical fall. She reported getting up from the couch and was walking across a linoleum floor when she felt her ankle roll and she fell down. She denied any lightheadedness or dizziness before the fall. She states she had a sharp sudden pain in her ankle as she began to fall down. She states she was unable to bear weight on her right foot after the fall. She denies any additional injuries or hitting her head during the fall. She denies any other recent falls or injuries. She denies any prior broken bones. She does report having 2-3 glasses of wine prior to the fall but does not feel she was intoxicated. HOSPITAL COURSE: In the ED she was found to have a right ankle trimalleolar fracture with associated instability and subluxation of the talus within the ankle mortise. Ortho was consulted and a closed reduction and splinting was performed on 05/16 in the ED and she had a R ankle ORIF on 05/17 without complications. She was started on BID ASA 81 that she will take for 14d and will follow up in ortho clinic. DISCHARGE MEDICATIONS: Please see below. ALLERGIES: Please see below. PHYSICAL EXAMINATION ON DISCHARGE: VITAL SIGNS: Please see below. GENERAL: Alert, comfortable, in no acute distress HEENT: Normocephalic, atraumatic, sclera anicteric, moist mucous membranes NECK: Supple, trachea midline, no lymphadenopathy CARDIOVASCULAR: Regular rate and rhythm, normal S1 and S2. No murmurs, rubs, or gallops RESPIRATORY: Clear to auscultation bilaterally with equal air entry bilaterally. No wheezing, rhonchi, or rales. ABDOMEN: Soft, nontender, nondistended, bowel sounds present. EXTREMITIES: Right leg wrapped in dressing. WWP, good <2sec cap refill. NEUROLOGIC: Alert and oriented x3 to person, place and time. No focal deficits appreciated PSYCHIATRIC: Mood and affect appropriate LABORATORY DATA: see below IMAGING: - Ankle XR: There is a trimalleolar fracture with lateral and posterior subluxation of the talus. PROGNOSIS: Good ACTIVITY: As tolerated DIET: regular DISCHARGE PLAN: Home with ortho follow up DISPOSITION: Home DISCHARGE INSTRUCTIONS: Home with ortho follow up ITEMS TO FOLLOWUP ON ON OUTPATIENT: R ankle fracture morbid obesity DISCHARGE CONDITION: Stable TIME SPENT ON DISCHARGE: 33 minutes. Vital Signs/I&Os Vital Signs Date Time Temp Pulse Resp B/P (MAP) Pulse Ox O2 Delivery O2 Flow Rate FiO2 05/18/20 08:01 16 05/18/20 06:00 98.2 77 136/86 (103) 98 Room Air 05/16/20 19:10 4.0 I&O- Last 24 Hours up to 6 AM 05/18/20 05:59 Intake Total 2690 ml Output Total 1750 ml Balance 940 ml Laboratory Data Labs 24H Laboratory Tests 2 05/18/20 06:15: Nucleated Red Blood Cells % (auto) 0.0, Anion Gap 8, Glomerular Filtration Rate > 60.0, Calcium Level 8.4L CBC/BMP Laboratory Tests 05/18/20 06:15 Discharge Medications Scheduled Aspirin (Children's Aspirin) 81 Mg Tab.chew, 81 MG PO BID Fluoxetine Hcl (Fluoxetine HCl) 40 Mg Capsule, 40 MG PO DAILY, (Reported) Fluticasone Propionate (Fluticasone Propionate) 16 Gm [place].susp, 2 SPRAYS NA DAILY, (Reported) Folic Acid/Multivit-Min/Lutein (Multi-Vitamin Gummies) 1 Each Tab.chew, 1 CHW PO DAILY, (Reported) Omeprazole (Omeprazole) 40 Mg Capsule.dr, 40 MG PO DAILY, (Reported) Scheduled PRN Alprazolam (Alprazolam) 0.5 Mg Tablet, 0.5 MG PO BID PRN for ANXIETY, (Reported) Oxycodone HCl (Oxycodone HCl) 5 Mg Tablet, 5 MG PO Q6H PRN for PAIN 5-7 Zolpidem Tartrate (Zolpidem Tartrate) 10 Mg Tablet, 10 MG PO QHS PRN for SLEEP, (Reported) Allergies Coded Allergies: Sulfa (Sulfonamide Antibiotics) (Verified Allergy, Unknown, 05/16/20) cefaclor (Verified Allergy, Unknown, 05/16/20) sulfamethoxazole (Verified Allergy, Unknown, 05/16/20) trimethoprim (Verified Allergy, Unknown, 05/16/20) CARLITO VARMA MD May 18, 2020 09:33
== END 2020-05-18 12:15 | disposition home or self-care (01) | DRG 313 ==
LOC: EDBD 17:34 → M ED 17:34 → M ED INP 21:00 → ENRESERV 22:09 → M MS5PR 22:46
PROVIDERS: ADMIT Internal Medicine; ATTEND Internal Medicine
PROC: 0QSJ04Z Reposition Right Fibula with Internal Fixation Device, Open Approach (ICD-10-PCS; principal; 2020-05-17 09:30)
DX: S82.851A Displaced trimalleolar fracture of right lower leg, initial encounter for closed fracture (principal); F32.9 Major depressive disorder, single episode, unspecified; W18.30XA Fall on same level, unspecified, initial encounter; Y92.008 Other place in unspecified non-institutional (private) residence as the place of occurrence of the external cause; F41.9 Anxiety disorder, unspecified; K21.9 Gastro-esophageal reflux disease without esophagitis; E66.9 Obesity, unspecified; Z20.822 Contact with and (suspected) exposure to COVID-19; Z79.899 Other long term (current) drug therapy; Z88.1 Allergy status to other antibiotic agents; Z88.2 Allergy status to sulfonamides; Z88.8 Allergy status to other drugs, medicaments and biological substances

== ENCOUNTER → 2020-05-27 | Outpatient (CLI) | payer OTHER ==
[~2020-05-27] MED LIST changes: +ALPR0.5T3 PO; +ASPI81CH8 PO; +FLUO40CA PO; +FLUTISP; +MULTCHW12 PO; +OMEP-221 PO; +OXYC-517 PO; +ZOLP10TA2 PO
== END ==
LOC: M SOG 15:49
PROVIDERS: ATTEND Family Medicine
DX: S82.851D Displaced trimalleolar fracture of right lower leg, subsequent encounter for closed fracture with routine healing (principal)

== ENCOUNTER → 2020-06-23 | Outpatient (CLI) | payer OTHER ==
--- NOTE | 2020-06-23 09:21 | REP ---
INDICATION: F/U FX. COMPARISON: 05/27/2020. TECHNIQUE: Four views right ankle. FINDINGS: Metallic internal fixation is again noted in the distal fibula and in the medial malleolus for healing fractures at those locations. Osseous structures are well-aligned. Ankle mortise is anatomic. Vague fracture lines are still visualized. Small calcific density is again seen anterior to the tibiotalar joint. There is calcaneal spurring again noted. IMPRESSION: Metallic internal fixation distal fibula and medial malleolus again noted for healing fractures at those locations which are again well aligned. <Electronically signed by Hema Dominguez > 06/23/20 0924
== END ==
LOC: M SOG 06-22 10:50
PROVIDERS: ATTEND Orthopaedic Surgery Adult Reconstructive Orthopaedic Surgery
DX: S82.851D Displaced trimalleolar fracture of right lower leg, subsequent encounter for closed fracture with routine healing (principal); X58.XXXD Exposure to other specified factors, subsequent encounter; Y92.9 Unspecified place or not applicable

== ENCOUNTER → 2020-06-29 | Outpatient (CLI) | payer OTHER ==
--- NOTE | 2020-06-29 12:05 | DEXAMM ---
INDICATION: M85.80 OTHER DISORDER OF BONE. COMPARISON: None. TECHNIQUE: Bone density was measured using dual-energy x-ray absorptionmetry (DEXA). FINDINGS: AP SPINE L1-L4 BMD 1.579 g/cm2 Young Adult T-Score 3.1 Age Matched Z-Score 3.1. LT FEMUR, TOTAL BMD 1.283 g/cm2 Young Adult T-Score 2.2 Age Matched Z-Score 2.4. LT NECK BMD 1.144 g/cm2 Young Adult T-Score 0.8 Age Matched Z-Score 1.1. RT FEMUR, TOTAL BMD 1.150 g/cm2 Young Adult T-Score 1.1 Age Matched Z-Score 1.3. RT NECK BMD 1.076 g/cm2 Young Adult T-Score 0.3 Age Matched Z-Score 0.6. IMPRESSION: There is normal bone density of the spine. There is normal bone density of the left hip. There is normal bone density of the right hip. FOLLOW-UP: Recommendation for the next bone density exam: 10 years. <Electronically signed by Leonel Levine > 06/29/20 [id number]
== END ==
LOC: M WHC 09:07
PROVIDERS: ATTEND Physician Assistant
DX: M85.80 Other specified disorders of bone density and structure, unspecified site (principal)

== ENCOUNTER → 2020-07-15 | Outpatient (CLI) | payer OTHER ==
--- NOTE | 2020-07-15 09:37 | REP ---
INDICATION: AFTERCARE. COMPARISON: 05/16/2020 TECHNIQUE: AP, lateral, bilateral oblique views of the right ankle. FINDINGS: Satisfactory open reduction and fixation for medial and lateral malleolar fractures. Residual soft tissue swelling noted. Underlying age-related changes identified. No acute fracture or dislocation. IMPRESSION: Satisfactory open reduction and fixation for bilateral malleolar fractures. <Electronically signed by Wallace Rg > 07/15/20 0926
== END ==
LOC: M SOG 09:00
PROVIDERS: ATTEND Orthopaedic Surgery Adult Reconstructive Orthopaedic Surgery
DX: Z48.89 Encounter for other specified surgical aftercare (principal); S82.841D Displaced bimalleolar fracture of right lower leg, subsequent encounter for closed fracture with routine healing

== ENCOUNTER → 2020-07-31 | Outpatient (REF) | payer OTHER | LOC: M SFHCWAGY 19:02 | PROVIDERS: ATTEND Advanced Practice Midwife | DX: Z12.4 Encounter for screening for malignant neoplasm of cervix (principal) ==

== ENCOUNTER → 2020-10-14 | Outpatient (CLI) | payer OTHER ==
--- NOTE | 2020-10-14 09:38 | REP ---
INDICATION: FX F/U. COMPARISON: 07/15/2020 TECHNIQUE: AP, lateral, bilateral oblique views of the right ankle FINDINGS: Orthopedic hardware along the distal fibula and at the medial malleolus are in stable position. Underlying fractures appear to have healed. No acute fracture or dislocation identified. 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 IMPRESSION: 1. Healed fractures. 2. Chronic stable arthritic degenerative changes. <Electronically signed by Wallace Rg > 10/14/20 0940
== END ==
LOC: M SOG 09:09
PROVIDERS: ATTEND Orthopaedic Surgery Adult Reconstructive Orthopaedic Surgery
DX: S82.851D Displaced trimalleolar fracture of right lower leg, subsequent encounter for closed fracture with routine healing (principal)

== ENCOUNTER → 2020-10-19 | Outpatient (CLI) | payer OTHER ==
--- NOTE | 2020-10-19 12:38 | REP ---
INDICATION: RT ANKLE FX RT LOWER LEG. COMPARISON: No prior CTs TECHNIQUE: 2 x 2 mm contiguous helical scanning through the right ankle with sagittal and coronal reconstruction FINDINGS: The previously described trimalleolar fracture has been openly reduced and internally fixed. The alignment is near anatomical. There is evidence of bony demineralization. The mortise is intact. None of the affixing screws breach a joint space. There is no evidence of a gross joint effusion. Plantar and retrocalcaneal heel spurs are identified. The subtalar joints are well aligned. There is no evidence of an acute fracture. IMPRESSION: Status post ORIF as described above. <Electronically signed by Valentín Arechiga > 10/19/20 [id number]
== END ==
LOC: M PLAIMG 11:04
PROVIDERS: ATTEND Orthopaedic Surgery Adult Reconstructive Orthopaedic Surgery
DX: S82.851D Displaced trimalleolar fracture of right lower leg, subsequent encounter for closed fracture with routine healing (principal); M77.31 Calcaneal spur, right foot; X58.XXXD Exposure to other specified factors, subsequent encounter; Y92.9 Unspecified place or not applicable; Y99.9 Unspecified external cause status; Y93.9 Activity, unspecified

== ENCOUNTER → 2020-11-04 | Outpatient (CLI) | payer OTHER ==
--- NOTE | 2020-11-04 09:39 | REP ---
INDICATION: RT ANKLE FX FOLLOW-UP. COMPARISON: Comparison ankle radiographs October 14, 2020. TECHNIQUE: Four views of the right ankle are provided. FINDINGS: Patient is status post screw plate fixation distal fibula and 2 metallic pins are seen in the medial malleolus as before. There is mild tibiotalar spurring visible on the lateral radiograph both anteriorly and posteriorly. Today's lateral view demonstrates a small os ossific density at the posterior ankle joint line, 3 mm in diameter. There is anterior soft tissue swelling. Large heel spurs are again noted. IMPRESSION: Post open reduction internal fixation. Spurring. <Electronically signed by Leonel Levine > 11/04/20 [id number]
== END ==
LOC: M SOG 08:52
PROVIDERS: ATTEND Orthopaedic Surgery Adult Reconstructive Orthopaedic Surgery
DX: S82.851D Displaced trimalleolar fracture of right lower leg, subsequent encounter for closed fracture with routine healing (principal); M77.31 Calcaneal spur, right foot; X58.XXXD Exposure to other specified factors, subsequent encounter; Y92.9 Unspecified place or not applicable; Y99.9 Unspecified external cause status; Y93.9 Activity, unspecified

== ENCOUNTER → 2020-11-13 | Outpatient (CLI) | payer OTHER ==
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
== END ==
LOC: M RAD 09:56
PROVIDERS: ATTEND Orthopaedic Surgery Adult Reconstructive Orthopaedic Surgery
DX: R22.41 Localized swelling, mass and lump, right lower limb (principal)

== ENCOUNTER 2021-01-18 02:01 | Emergency (ER) | payer OTHER ==
[~2021-01-18] VITALS: Ht 160 cm; Wt 100.0 kg
[~2021-01-18 02:01] MED LIST changes: -CYMB60CA3 PO; +CYMB60CA4 PO
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
[2021-01-18] MEDS ORDERED: LIDOCAINE 2% MDV 20ML VIAL SC ONE (04:20)
[2021-01-18 04:31] LABS: HEMATOCRIT 42.1 % (36.0-47.0); HEMOGLOBIN 13.4 g/dl (12.0-15.5); MEAN CORPUSCULAR HEMOGLOBIN 25.7 pg (27.0-33.0); MEAN CORPUSCULAR HGB CONC 31.8 g/dl (32.0-36.5); MEAN CORPUSCULAR VOLUME 80.7 fl (80.0-96.0); PLATELET COUNT, AUTOMATED 481 10^3/uL (150-450); RED BLOOD COUNT 5.22 10^6/uL (4.00-5.40); WHITE BLOOD COUNT 8.9 10^3/uL (4.0-10.0)
[2021-01-18 05:02] LABS: AMPHETAMINES LEVEL URINE NEGATIVE (NEGATIVE); BARBITURATES URINE NEGATIVE (NEGATIVE); BENZODIAZEPINES URINE NEGATIVE (NEGATIVE); CANNABINOIDS URINE NEGATIVE (NEGATIVE); COCAINE METABOLITE URINE NEGATIVE (NEGATIVE); METHADONE URINE NEGATIVE (NEGATIVE); OPIATES URINE NEGATIVE (NEGATIVE); PHENCYCLIDINE URINE NEGATIVE (NEGATIVE)
[2021-01-18 05:15] LABS: ACETAMINOPHEN LEVEL < 2.0 UG/ML (10.0-30.0); ALBUMIN 4.3 GM/DL (3.2-5.2); ALT/SGPT 102 U/L (12-78); BILIRUBIN,DIRECT 0.1 MG/DL (0.0-0.2); BILIRUBIN,TOTAL 0.2 MG/DL (0.2-1.0); BLOOD UREA NITROGEN 8 MG/DL (7-18); CALCIUM LEVEL 9.2 MG/DL (8.5-10.1); CARBON DIOXIDE LEVEL 23 MEQ/L (21-32); CHLORIDE LEVEL 105 MEQ/L (98-107); CREATININE FOR GFR 0.67 MG/DL (0.55-1.30); ETHYL ALCOHOL (ETHANOL) 0.284 % (0.000-0.010); GLOMERULAR FILTRATION RATE > 60.0 (>60); GLUCOSE, FASTING 104 MG/DL (70-100); POTASSIUM SERUM 4.1 MEQ/L (3.5-5.1); SALICYLATE LEVEL < 1.7 MG/DL (5.0-30.0); SODIUM LEVEL 140 MEQ/L (136-145); TOTAL PROTEIN 8.4 GM/DL (6.4-8.2)
[2021-01-18] MEDS ORDERED: NEOSPORIN OINT 0.9 GM PKT TOP ONE (05:30)
--- OUTSIDE RECORDS SUMMARY | 2021-01-18 05:49 | CCD ---
Author Author [facility] Organization [facility] Address Unknown Phone Unavailable Care Team Providers Care Check Writer Name Role Phone Oj Schofield MD Unavailable Unavailable Oj Schofield MD Unavailable Unavailable Oj Schofield MD Unavailable Unavailable Oj Schofield MD Unavailable Unavailable Oj Schofield MD Unavailable Unavailable Oj Schofield MD Unavailable Unavailable Oj Schofield MD Unavailable Unavailable Oj Schofield MD Unavailable Unavailable Oj Schofield MD Unavailable Unavailable Oj Schofield MD Unavailable Unavailable Oj Schofield MD Unavailable Unavailable Oj Schofield MD Unavailable Unavailable Bolla, S Yifan MD Unavailable Unavailable Bolla, S Yifan MD Unavailable Unavailable Bolla, S Yifan MD Unavailable Unavailable Bolla, S Yifan MD Unavailable Unavailable Bolla, S Yifan MD Unavailable Unavailable Bolla, S Yifan MD Unavailable Unavailable Bolla, S Yifan MD Unavailable Unavailable Bolla, S Yifan MD Unavailable Unavailable Bolla, S Yifan MD Unavailable Unavailable Bolla, S Yifan MD Unavailable Unavailable Bolla, S Yifan MD Unavailable Unavailable Bolla, S Yifan MD Unavailable Unavailable Bolla, S Yifan MD Unavailable Unavailable Bolla, S Yifan MD Unavailable Unavailable Bolla, S Yifan MD Unavailable Unavailable Bolla, S Yifan MD Unavailable Unavailable Bolla, S Yifan MD Unavailable Unavailable Bolla, S Yifan MD Unavailable Unavailable Bolla, S Yifan MD Unavailable Unavailable Bolla, S Yifan MD Unavailable Unavailable Bolla, S Yifan MD Unavailable Unavailable Bolla, S Yifan MD Unavailable Unavailable Bolla, S Yifan MD Unavailable Unavailable Bolla, S Yifan MD Unavailable Unavailable Bolla, S Yifan MD Unavailable Unavailable Bolla, S Yifan MD Unavailable Unavailable Bolla, S Yifan MD Unavailable Unavailable Bolla, S Yifan MD Unavailable Unavailable Bolla, S Yifan MD Unavailable Unavailable Bolla, S Yifan MD Unavailable Unavailable Bolla, S Yifan MD Unavailable Unavailable Bolla, S Yifan MD Unavailable Unavailable Bolla, S Yifan MD Unavailable Unavailable Bolla, S Yifan MD Unavailable Unavailable Bolla, S Yifan MD Unavailable Unavailable Bolla, S Yifan MD Unavailable Unavailable Bolla, S Yifan MD Unavailable Unavailable Humera, Tho PA Unavailable Unavailable Humera, Tho PA Unavailable Unavailable Humera, Tho PA Unavailable Unavailable Humera, Toh PA Unavailable Unavailable Humera, Tho PA Unavailable Unavailable Humera, Tho PA Unavailable Unavailable Humera, Tho PA Unavailable Unavailable Humera, Tho PA Unavailable Unavailable Humera, Tho PA Unavailable Unavailable Humera, Tho PA Unavailable Unavailable Humera, Tho PA Unavailable Unavailable Humera, Tho PA Unavailable Unavailable Humera, Tho PA Unavailable Unavailable Humera, Tho PA Unavailable Unavailable Humera, Tho PA Unavailable Unavailable Humera, Tho PA Unavailable Unavailable Humera, Tho PA Unavailable Unavailable Humera, Tho PA Unavailable Unavailable Humera, Tho PA Unavailable Unavailable Humera, Tho PA Unavailable Unavailable Humera, Tho PA Unavailable Unavailable Humera, Tho PA Unavailable Unavailable Humera, Tho PA Unavailable Unavailable Humera, Tho PA Unavailable Unavailable Humera, Tho PA Unavailable Unavailable Humera, Tho PA Unavailable Unavailable Humera, Tho PA Unavailable Unavailable Humera, Tho PA Unavailable Unavailable Humera, Tho PA Unavailable Unavailable Humera, Tho PA Unavailable Unavailable Humera, Tho PA Unavailable Unavailable Humera, Tho PA Unavailable Unavailable Humera, Tho PA Unavailable Unavailable Humera, Tho PA Unavailable Unavailable Humera, Tho PA Unavailable Unavailable Humera, Tho PA Unavailable Unavailable Humera, Tho PA Unavailable Unavailable Humera, Tho PA Unavailable Unavailable Humera, Tho PA Unavailable Unavailable Humera, Tho PA Unavailable Unavailable Humera, Tho PA Unavailable Unavailable Humera, Tho PA Unavailable Unavailable Humera, Tho PA Unavailable Unavailable Humera, Tho PA Unavailable Unavailable Humera, Tho PA Unavailable Unavailable Humera, Tho PA Unavailable Unavailable Humera, Tho PA Unavailable Unavailable Humera, Tho PA Unavailable Unavailable Humera, Tho PA Unavailable Unavailable Humera, Tho PA Unavailable Unavailable Humera, Tho PA Unavailable Unavailable Humera, Tho PA Unavailable Unavailable Humera, Tho PA Unavailable Unavailable Humera, Tho PA Unavailable Unavailable SANDRINE-CLAYTON, CHIQUIS DO Unavailable Unavailable SANDRINE-CLATYON, CHIQUIS DO Unavailable Unavailable SANDRINE-CLAYTON, CHIQUIS DO Unavailable Unavailable SANDRINE-CLAYTON, CHIQUIS DO Unavailable Unavailable SANDRNIE-CLAYTON, CHIQUIS DO Unavailable Unavailable SANDRINE-CLAYTON, CHIQUIS DO Unavailable Unavailable SANDRINE-CLAYTON, CHIQUIS DO Unavailable Unavailable SANDRINE-CLAYTON, CHIQUIS DO Unavailable Unavailable SANDRINE-CLAYTON, CHIQUIS DO Unavailable Unavailable SANDRINE-CLAYTON, CHIQUIS DO Unavailable Unavailable SANDRINE-CLAYTON, CHIQUIS DO Unavailable Unavailable SANDRINE-CLAYTON, CHIQUIS DO Unavailable Unavailable SANDRINE-CLAYTON, CHIQUIS DO Unavailable Unavailable SANDRINE-CLAYTON, CHIQUIS DO Unavailable Unavailable SANDRINE-CLAYTON, CHIQUIS DO Unavailable Unavailable SANDRINE-CLAYTON, CHIQUIS DO Unavailable Unavailable SANDRINE-CLAYTON, CHIQUIS DO Unavailable Unavailable SANDRINE-CLAYTON, CHIQUIS DO Unavailable Unavailable SANDRINE-CLAYTON, CHIQUIS DO Unavailable Unavailable SANDRINE-CLAYTON, CHIQUIS DO Unavailable Unavailable SANDRINE-CLAYTON, CHIQUIS DO Unavailable Unavailable SANDRINE-CLAYTON, CHIQUIS DO Unavailable Unavailable SANDRINE-CLAYTON, CHIQUIS DO Unavailable Unavailable SANDRINE-CLAYTON, CHIQUIS DO Unavailable Unavailable SANDRINE-CLAYTON, CHIQUIS DO Unavailable Unavailable SANDRINE-CLAYTON, CHIQUIS DO Unavailable Unavailable SANDRINE-CLAYTON, CHIQUIS DO Unavailable Unavailable SANDRINE-CLAYTON, CHIQUIS DO Unavailable Unavailable SANDRINE-CLAYTON, CHIQUIS DO Unavailable Unavailable ASNDRINE-CLAYTON, CHIQUIS DO Unavailable Unavailable SANDRINE-CLAYTON, CHIQUIS DO Unavailable Unavailable SANDRINE-CLAYTON, CHIQUIS DO Unavailable Unavailable SANDRINE-CLAYTON, CHIQUIS DO Unavailable Unavailable SANDRINE-CLAYTON, CHIQUIS DO Unavailable Unavailable SANDRINE-CLAYTON, CHIQUIS DO Unavailable Unavailable SANDRINE-CLAYTON, CHIQUIS DO Unavailable Unavailable SANDRINE-CLAYTON, CHIQUIS DO Unavailable Unavailable SANDRINE-CLAYTON, CHIQUIS DO Unavailable Unavailable SANDRINE-CLAYTON, CHIQUIS DO Unavailable Unavailable SANDRINE-CLAYTON, CHIQUIS DO Unavailable Unavailable SANDRINE-CLAYTON, CHIQUIS DO Unavailable Unavailable SANDRINE-CLAYTON, CHIQUIS DO Unavailable Unavailable SANDRINE-CLAYTON, CHIQUIS DO Unavailable Unavailable SANDRINE-CLAYTON, CHIQUIS DO Unavailable Unavailable SANDRINE-CLAYTON, CHIQUIS DO Unavailable Unavailable SANDRINE-CLAYTON, CHIQUIS DO Unavailable Unavailable SANDRINE-CLAYTON, CHIQUIS DO Unavailable Unavailable SANDRINE-CLAYTON, CHIQUIS DO Unavailable Unavailable SANDRINE-CLAYTON, CHIQUIS DO Unavailable Unavailable SANDRINE-CLAYTON, CHIQUIS DO Unavailable Unavailable SANDRINE-CLAYTON, CHIQUIS DO Unavailable Unavailable SANDRINE-CLAYTON, CHIQUIS DO Unavailable Unavailable SANDRINE-CLAYTON, CHIQUIS DO Unavailable Unavailable SANDRINE-CLAYTON, CHIQUIS DO Unavailable Unavailable SANDRINE-CLAYTON, CHIQUIS DO Unavailable Unavailable SANDRINE-CLAYTON, CHIQUIS DO Unavailable Unavailable SANDRINE-CLAYTON, CHIQUIS DO Unavailable Unavailable SANDRINE-CLAYTON, CHIQUIS DO Unavailable Unavailable SANDRINE-CLAYTON, CHIQUIS DO Unavailable Unavailable SANDRINE-CLAYTON, CHIQUIS DO Unavailable Unavailable SANDRINE-CLAYTON, CHIQUIS DO Unavailable Unavailable SANDRINE-CLAYTON, CHIQUIS DO Unavailable Unavailable SANDRINE-CLAYTON, CHIQUIS DO Unavailable Unavailable SANDRINE-CLAYTON, CHIQUIS DO Unavailable Unavailable SANDRINE-CLAYTON, CHIQUIS DO Unavailable Unavailable SANDRINE-CLAYTON, CHIQUIS DO Unavailable Unavailable SANDRINE-CLAYTON, CHIQUIS DO Unavailable Unavailable SANDRINE-CLAYTON, CHIQUIS DO Unavailable Unavailable SANDRINE-CLAYTON, CHIQUIS DO Unavailable Unavailable SANDRINE-CLAYTON, CHIQUIS DO Unavailable Unavailable SANDRINE-CLATYON, CHIQUIS DO Unavailable Unavailable SANDRINE-CLAYTON, CHIQUIS DO Unavailable Unavailable SANDRINE-CLAYTON, CHIQUIS DO Unavailable Unavailable SANDRINE-CLAYTON, CHIQUIS DO Unavailable Unavailable SANDRINE-CLAYTON, CHIQUIS DO Unavailable Unavailable SANDRINE-CLAYTON, CHIQUIS DO Unavailable Unavailable SANDRINE-CLAYTON, CHIQUIS DO Unavailable Unavailable SANDRINE-CLAYTON, CHIQUIS DO Unavailable Unavailable SANDRINE-CLAYTON, CHIQUIS DO Unavailable Unavailable SANDRINE-CLAYTON, CHIQUIS DO Unavailable Unavailable SANDRINE-CLAYTON, CHIQUIS DO Unavailable Unavailable SANDRINE-CLAYTON, CHIQUIS DO Unavailable Unavailable SANDRINE-CLAYTON, CHIQUIS DO Unavailable Unavailable SANDRINE-CLAYTON, CHIQUIS DO Unavailable Unavailable Herman Engle MD Unavailable Unavailable Herman Engle MD Unavailable Unavailable Herman Engle MD Unavailable Unavailable Herman Engle MD Unavailable Unavailable Herman Engle MD Unavailable Unavailable Herman Engle MD Unavailable Unavailable Herman Engle MD Unavailable Unavailable Herman Engle MD Unavailable Unavailable Herman Engle MD Unavailable Unavailable Herman Engle MD Unavailable Unavailable Jumalon, M Dariana CRUSHER Unavailable Unavailable Jumalon, M Dariana CRUSHER Unavailable Unavailable Jumalon, M Dariana CRUSHER Unavailable Unavailable Jumalon, M Dariana CRUSHER Unavailable Unavailable Jumalon, M Dariana CRUSHER Unavailable Unavailable Jumalon, M Dariana CRUSHER Unavailable Unavailable Jumalon, M Dariana CRUSHER Unavailable Unavailable Jumalon, M Dariana CRUSHER Unavailable Unavailable Jumalon, M Dariana CRUSHER Unavailable Unavailable Jumalon, M Dariana CRUSHER Unavailable Unavailable Jumalon, M Dariana CRUSHER Unavailable Unavailable Jumalon, M Dariana CRUSHER Unavailable Unavailable Jumalon, M Dariana CRUSHER Unavailable Unavailable Jumalon, M Dariana CRUSHER Unavailable Unavailable Jumalon, M Dariana CRUSHER Unavailable Unavailable Jumalon, M Dariana CRUSHER Unavailable Unavailable Jumalon, M Dariana CRUSHER Unavailable Unavailable Jumalon, M Dariana CRUSHER Unavailable Unavailable Jumalon, M Dariana CRUSHER Unavailable Unavailable Jumalon, M Dariana CRUSHER Unavailable Unavailable Jumalon, M Dariana CRUSHER Unavailable Unavailable Jumalon, M Dariana CRUSHER Unavailable Unavailable Jumalon, M Dariana CRUSHER Unavailable Unavailable Jumalon, M Dariana CRUSHER Unavailable Unavailable Jumalon, M Dariana CRUSHER Unavailable Unavailable Jumalon, M Dariana CRUSHER Unavailable Unavailable Jumalon, M Dariana CRUSHER Unavailable Unavailable Jumalon, M Dariana CRUSHER Unavailable Unavailable Jumalon, M Dariana CRUSHER Unavailable Unavailable Jumalon, M Dariana CRUSHER Unavailable Unavailable O'santy, A Corbin PA Unavailable Unavailable O'santy, A Corbin PA Unavailable Unavailable O'santy, A Corbin PA Unavailable Unavailable O'santy, A Corbin PA Unavailable Unavailable O'santy, A Corbin PA Unavailable Unavailable O'santy, A Corbin PA Unavailable Unavailable O'santy, A Corbin PA Unavailable Unavailable O'santy, A Corbin PA Unavailable Unavailable O'santy, A Corbin PA Unavailable Unavailable O'santy, A Corbin PA Unavailable Unavailable O'santy, A Corbin PA Unavailable Unavailable O'santy, A Corbin PA Unavailable Unavailable O'santy, A Corbin PA Unavailable Unavailable O'santy, A Corbin PA Unavailable Unavailable O'santy, A Corbin PA Unavailable Unavailable O'santy, A Corbin PA Unavailable Unavailable O'santy, A Corbin PA Unavailable Unavailable O'santy, A Corbin PA Unavailable Unavailable O'santy, A Corbin PA Unavailable Unavailable O'santy, A Corbin PA Unavailable Unavailable O'santy, A Corbin PA Unavailable Unavailable O'santy, A Corbin PA Unavailable Unavailable O'santy, A Corbin PA Unavailable Unavailable O'santy, A Corbin PA Unavailable Unavailable O'santy, A Corbin PA Unavailable Unavailable O'santy, A Corbin PA Unavailable Unavailable O'santy, A Corbin PA Unavailable Unavailable O'santy, A Corbin PA Unavailable Unavailable O'santy, A Corbin PA Unavailable Unavailable O'santy, A Corbin PA Unavailable Unavailable O'santy, A Corbin PA Unavailable Unavailable O'santy, A Corbin PA Unavailable Unavailable O'santy, A Corbin PA Unavailable Unavailable Re-disclosure Warning The records that you are about to access may contain information from federally-assisted alcohol or drug abuse programs. If such information is present, then the following federally mandated warning applies: This information has been disclosed to you from records protected by federal confidentiality rules (42 CFR part 2). The federal rules prohibit you from making any further disclosure of this information unless further disclosure is expressly permitted by the written consent of the person to whom it pertains or as otherwise permitted by 42 CFR part 2. A general authorization for the release of medical or other information is NOT sufficient for this purpose. The Federal rules restrict any use of the information to criminally investigate or prosecute any alcohol or drug abuse patient.The records that you are about to access may contain highly sensitive health information, the redisclosure of which is protected by Article 27-F of the [facility] Public Health law. If you continue you may have access to information: Regarding HIV / AIDS; Provided by facilities licensed or operated by the [facility] Office of Mental Health; or Provided by the [facility] Office for People With Developmental Disabilities. If such information is present, then the following [facility] mandated warning applies: This information has been disclosed to you from confidential records which are protected by state law. State law prohibits you from making any further disclosure of this information without the specific written consent of the person to whom it pertains, or as otherwise permitted by law. Any unauthorized further disclosure in violation of state law may result in a fine or nursing home sentence or both. A general authorization for the release of medical or other information is NOT sufficient authorization for further disc losure. Family History Family Member Name Family Member Gender Family Member Status Date o f Status Description Data Source(s) Unknown Unknown Problem [facility] ([facility], ) Encounters Encounter Providers Location Date Indications Data Source(s ) Outpatient Attender: Herman Garcia/Sarah/Deandre/Sheri dl 11/26/2020 09:00:00 AM EDT [facility] ([facility], ) Outpatient Attender: Herman Garcia/[place]/Deandre/Rein dl 11/04/2020 08:30:00 AM EDT [facility] ([facility] Dariana Covarrubias Maral, GINGER: [id number], [place] [address], Ph. Attender: Dariana CARMONA AR - [facility] 10/21/2020 12:00:00 AM EDT ATHE NA ([facility]) Outpatient Attender: Herman Garcia/Sarah/Deandre/Rein dl 10/14/2020 09:30:00 AM EDT [facility] ([facility]) Yifan Schofield MD: [id number] [facility] [address], [place] [address], Ph. Attender: Yifan Schofield MD [facility] 09/28/2020 12:00:00 AM EDT SPRING ([facility]) Yifan Schofield MD: [id number] [facility] [address], [place] [address], Ph. Attender: Yifan Schofield MD [facility] 09/28/2020 12:00:00 AM EDT SPRING ([facility]) Outpatient Attender: Tho BERMAN [facility] 09/21/2020 09:40:00 AM EDT [facility] ([facility]) Outpatient Attender: Tho BERMAN [facility] 09/14/2020 02:40:00 PM EDT MED[facility] ([facility]) ( PROC) [facility] [address] [place] [address] 08/04/2020 12:00:00 AM EDT eCW1 ([facility]) Outpatient [address] [facility] [address] 07/31/2020 12:00:00 AM EDT eCW1 ([facility]) Office Visit Attender: Herman Garcia/Sarah/Deandre/Rein dl 07/15/2020 09:00:00 AM EDT [facility] ([facility]) Outpatient Attender: Corbin BERMAN [facility] 07/06/2020 09:00:00 AM EDT MED[facility] ([facility]) Office Visit Attender: Herman Garcia/Sarah/Deandre/Rein dl 06/23/2020 08:00:00 AM EDT [facility] ([facility]) Office Visit Attender: Herman Garcia/Sarah/Deandre/Rein dl 05/27/2020 03:30:00 PM EDT [facility] ([facility]) Outpatient Attender: Corbin BERMAN [facility] 05/26/2020 11:00:00 AM EDT MED[facility] ([facility]) Outpatient Attender: Corbin BERMAN [facility] 05/04/2020 08:00:00 AM EST MED[facility] ([facility]) Outpatient Attender: Corbin BERMAN [facility] 04/20/2020 08:20:00 AM EST MEDENT ([facility]) Outpatient Attender: CHIQUIS ARIAS DO [facility] 02/26/2020 08:20:00 AM EST [facility] ([facility]) Outpatient Attender: Corbin BERMAN [facility] 02/10/2020 08:00:00 AM EST [facility] ([facility]) Outpatient Attender: Corbin BERMAN [facility] 11/20/2019 10:30:00 AM EDT MED[facility] ([facility]) Immunizations Vaccine Date Status Description Data Source(s) COVID-19 VACCINE Moderna 07/09/2020 12:00:00 AM EDT completed [place] Vaccine Series Complete: YESThis Data wa s Submitted to [facility] Via [employer]. COVID-19 VACCINE Moderna 06/11/2020 12:00:00 AM EDT completed [place] Vaccine Series Complete: NOThis Data was Submitted to [facility] Via [employer] in 2011. IIV4 11/20/2019 11:18:00 AM EDT completed MEDENT ([facility]) Medications Medication Brand Name Start Date Product Form Dose Route Admi nistrative Instructions Pharmacy Instructions Status Indications Reaction Description Data Source(s) Acamprosate calcium 333 MG Delayed Release Oral Tablet Acamp rosate Calcium 09/14/2020 12:00:00 AM EDT ORAL active MEDENT ([facility]) Calcium Carbonate 600 MG / Cholecalciferol 400 UNT Ora l Tablet Calcium 600+D High Potency 05/26/2020 12:00:00 AM EDT ORAL active MEDENT ([facility]) Oxycodone Hydrochloride 5 MG Oral Capsule Oxycodone HCL 05/22/2020 12:00:00 AM EDT ORAL completed [facility] ([facility] ) Zolpidem tartrate 10 MG Oral Tablet [Ambien] Ambien 12:00:00 AM EST ORAL active MEDENT ( [facility]) Omeprazole 40 MG Delayed Release Oral Capsule Omeprazole 04/20/2020 12:00:00 AM EST ORAL active [facility] ([facility]) Alprazolam 0.5 MG Oral Tablet [Xanax] Xanax 04/20/2020 12:00:00 AM EST ORAL active MEDENT ([facility]) Clobetasol Propionate E Clobetasol Propionate E 02/26/2020 12:00:00 A M EST active [facility] ([facility]) Erythromycin 0.005 MG/MG Ophthalmic Ointment Erythromycin 02/26/2020 12:00:00 AM EST completed [facility] ([facility]) Clonazepam 0.5 MG Disintegrating Oral Tablet Clonazepam 02/10/2020 12:00:00 AM EST completed [facility] ([facility]) cetirizine hydrochloride 10 MG Oral Tablet [Zyrtec] Zyrtec A llergy 02/10/2020 12:00:00 AM EST ORAL active M EDENT ([facility]) Fluoxetine 40 MG Oral Capsule Fluoxetine HCL 02/10/2020 12:00:[address] ORAL active MEDENT ([facility]) Flonase Allergy Relief Flonase Allergy Relief 02/10/2020 12:00:[address] active MED[facility] ([facility]) Naproxen 500 MG Oral Tablet Naproxen 11/20/2019 12:00:00 AM EDT completed MEDENT ([facility]) Triamcinolone Acetonide 0.001 MG/MG Topical Ointment Triamci nolone Acetonide 09/24/2019 12:00:00 AM EDT completed MED[facility] ([facility]) Alprazolam 0.5 MG Oral Tablet [Xanax] Xa nax 0.5 mg tablet Take 1 tablet twice a day by oral route as needed. Xanax 0.5 mg tablet Take 1 tablet twice a day by oral route as needed. 1 completed alprazolam 0.5 MG Oral Tablet [Xanax] SPR[facility] ([facility]) Alprazolam 0.5 MG Oral Tablet [Xanax] Xa nax 0.5 mg tablet Take 1 tablet twice a day by oral route as needed. Xanax 0.5 mg tablet Take 1 tablet twice a day by oral route as needed. 1 completed alprazolam 0.5 MG Oral Tablet [Xanax] SPRING ([facility]) Insurance Providers Payer name Policy type / Coverage type Policy ID Covered republican ID Covered republican's relationship to king Policy [place] Plan Information BCBS GENERIC C [id number] Self [id number] BCBS OF [place] 306/806 [id number] BCBS GENERIC C [id number] [facility] [id number] AETNA U [id number] Self [id number] CIGNA U [id number] Self [id number] CIGNA U [id number] [facility] [id number] AETNA U [id number] [facility] [id number] [employer]na Medigap Part B [id number] Self [id number] [facility] U/W Commercial [id number] Self NTD [id number] [employer] Commercial [id number] Self [id number] [facility] 2017 Commercial [id number] Family Dependent [id number] [employer] Medigap Part B [id number] .[id number] Self [id number] [facility] U/W Commercial [id number] Self NTD [id number] [employer] Commercial [id number] Self [id number] [facility] 2017 Commercial [id number] Family Dependent [id number] [employer] Med[employer] Part B [id number] .[id number] Self [id number] [facility] U/[employer] Commercial [id number] Self NTD [id number] [employer] Commercial [id number] Self [id number] [facility] 2017 Commercial [id number] [id number] .[id number] Family Dependent [id number] [employer] Med[employer] Part B [id number] .0 Self [id number] [facility] U/W Commercial [id number] Self NTD [id number] [employer] Commercial [id number] [id number] Self [id number] [facility] 2017 Commercial [id number] [id number] .[id number] Family Dependent [id number] [employer] Med[employer] Part B [id number] [id number] .0 Self [id number] [facility] U/W Commercial [id number] 2..[id number] Self NTD [id number] [employer] Commercial [id number] Self [id number] [facility] 2017 Commercial [id number] [id number] .[id number] Family Dependent [id number] [employer] Med[employer] Part B [id number] [id number]50 .0 Self [id number] [facility] U/W Commercial [id number] 2..[id number] Self NTD [id number] [employer] Commercial [id number] Self [id number] [facility] 2017 Commercial [id number] .[id number] Family Dependent [id number] [employer] Med[employer] Part B [id number] .0 Self [id number] [facility] U/W Commercial [id number] Self NTD [id number] [employer] Commercial [id number] Self [id number] [employer] [facility] Part B [id number] .0 Self [id number] [facility] U/W Commercial [id number] Self NTD [id number] [employer] Commercial [id number] Self [id number] [facility] Part B [id number] Self [id number] [facility] U/W Commercial [id number] Self NTD [id number] [employer] Commercial [id number] Self [id number] [facility] [id number] Self [id number] [facility] U/W Commercial [id number] Self NTD [id number] [employer] Commercial [id number] Self [id number] [facility] U/W Commercial [id number] Self NTD [id number] [employer] Commercial [id number] Self [id number] C[employer]/Conn Gen/Equicor Commercial [id number] Self U [id number] [facility] U/W Commercial [id number] Self NTD [id number] [employer] Commercial [id number] Self [id number] [employer] [id number] SP U [id number] [facility] U/W Commercial [id number] Self NTD [id number] [employer] Commercial [id number] Self [id number] [facility] U/W Commercial [id number] Self NTD [id number] Cigna/MVP Commercial [id number] Self [id number] [employer] [facility] [id number] SP [id number] Cigna/Conn Gen/MVP Commercial [id number] Self MVP Commercial [id number] Self [facility] U/W Commercial [id number] Self Cigna/Conn Gen/Equicor Commercial [id number] Self CIGNA/MVP/CONN GEN/PREFE O [id number] S [id number] MVP Commercial [id number] Self EXCELLUS BCBS B [id number] S NTD [id number] AETNA [place] O [id number] S [id number] BCBS/Blue Card Medigap Part B [id number] Self BCBS/Blue Card Commercial [id number] Self BCBS OF [place] 306/806 [id number] SP [id number] SELF PAY P UNAVAILABLE [id number] S UNAVAILA BLE BCBS [place] PPO 302/307 [id number] SP [id number] BCBS [place] PPO 302/307 [id number] SP [id number] BCBS [place] PPO 302/307 [id number] SP [id number] [facility] PHY [id number] SP [id number] POMCO [id number] FA2 [id number] POMCO [id number] FA [id number] POMCO [id number] SP [id number] SELF PAY UNAVAILABLE SP UNAVAILA BLE [facility] [id number] SP [id number] AETNA [facility] [place] [id number] SP [id number] AETNA [id number] SP [id number] AETNA [facility] [place] [id number] SP [id number] AETNA O [id number] S [id number] [facility] [id number] [facility] [id number] Aetna Commercial 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 Mild recurrent major d epression Problem 02/10/2020 12:00:00 AM EST EDUARDO ([facility]) Surgeries/Procedures Procedure Description Date Indications Data Source(s) OFFICE OUTPATIENT VISIT 15 MINUTES 11/26/2020 12:00:00 AM EDJenniffer CLARK ([facility], ) OFFICE OUTPATIENT VISIT 15 MINUTES 11/04/2020 12:00:00 AM EDT MEDENT ([facility], ) OFFICE OUTPATIENT VISIT 15 MINUTES 10/14/2020 12:00:00 AM EDT MEDENT ([facility], ) OFFICE OUTPATIENT VISIT 15 MINUTES 09/21/2020 12:00:00 AM EDT MEDENT ([facility]) OFFICE OUTPATIENT VISIT 25 MINUTES 09/14/2020 12:00:00 AM EDT MEDENT ([facility]) Medication: Mirena 52 mg (Levonorgestrel -releasing intrauterine contraceptive system) 08/04/2020 12:00:00 AM EDT eCW1 ([facility]) OFFICE OUTPATIENT VISIT 25 MINUTES 07/06/2020 12:00:00 AM EDT MEDENT ([facility]) Duffy Cre W/I 7 Days Of DC, Comm W/I 2 Dys 05/26/2020 12:00:00 AM EDT MEDENT ([facility]) OFFICE OUTPATIENT VISIT 25 MINUTES 05/04/2020 12:00:00 AM EST MEDENT ([facility]) OFFICE OUTPATIENT VISIT 25 MINUTES 04/20/2020 12:00:00 AM EST MEDENT ([facility]) Results ID Date Data Source [id number] 05/16/2020 08:35:00 PM EDT MEDENT ([facility]) Name Value Range Interpretation Code Description Data Mellisa rce(s) Supporting Document(s) Influenza A Amplification Laboratory test result Normal (applies to non- numeric results) [facility]) Negative results do not preclude influen za or RSV virus infection and should not be used as the sole basis for treatment or other patient management decisions. Influenza B Amplification Laboratory test result Normal (applies to non- numeric results) [facility]) Negative results do not preclude influen za or RSV virus infection and should not be used as the sole basis for treatment or other patient management decisions. RSV Amplification Laboratory test result Normal (applies to non-numeric results) [facility] ([facility]) Negative results do not preclude influen za or RSV virus infection and should not be used as the sole basis for treatment or other patient management decisions. Laboratory test finding (navigational concept) Laboratory test r esult Normal (applies to non-numeric results) [facility]) A false negative result may occur if a s pecimen is improperly collected, transported or handled. False negative results may also occur if inadequate numbers of organisms are present in the specimen. As with any molecular test, mutations within the target regions of Xpert Xpress SARS-CoV-2 could affect primer and/or probe binding resulting in failure to detect the presence of virus. This test cannot rule out diseases caused by other bacterial or viral pathogens. DISCLAIMER: Testing was performed using the [employer] SARS-CoV-2 test. This test was developed and its performance characteristics determined by [employer] This test has not been FDA cleared or approved. This test has been authorized by FDA under an Emergency Use Authorization (EUA). This test is only authorized for the duration of time the declaration that circumstances exist justifying the authorization of the emergency use of in vitro diagnostic tests for detection of SARS-CoV-2 virus and/or diagnosis of COVID-19 infection under section 564(b)(1) of the Act, 21 U.S.C. 360bbb-3(b)(1), unless the authorization is terminated or revoked sooner. ID Date Data Source [id number] 05/16/2020 08:35:00 PM EDT [facility]) Name Value Range Interpretation Code Description Data Mellisa rce(s) Supporting Document(s) Prothrombin Time 12.1 s 12.5-14.3 Normal (applies to non-numeric results) [facility]) Inr 0.88 Normal (applies to non-numeric resul ts) [facility]) THERAPUTIC HUMAN INR VALUES INDICATIONS NORMAL RANGES PROPHYLAXIS/TREATMENT OF: VENOUS THROMBOSIS 2.0-3.0 PULMONARY EMBOLISM 2.0-3.0 PREVENTION OF SYSTEMIC EMBOLISM FROM: TISSUE HEART VALVES 2.0-3.0 ACUTE MYOCARDIAL INFARCTION 2.0-3.0 VALVULAR HEART DISEASE 2.0-3.0 ATRIAL FIBRILLATION 2.0-3.0 MECHANICAL VALVES(HIGH RISK) 2.5-3.5 RECURRENT MYOCARDIAL INFARCTION 2.5-3.5 ID Date Data Source [id number] 05/16/2020 08:35:00 PM EDT [facility] ([facility]) Name Value Range Interpretation Code Description Data Mellisa rce(s) Supporting Document(s) White Blood Count 9.2 10 4.0-10.0 Normal (applies to non-numeri c results) [facility] Red Blood Count 4.45 10 4.00-5.40 Normal (applies to non-numeric results) [facility] ([facility]) Hemoglobin 12.2 g/dL 12.0-15.5 Normal (applies to non-numeric resul ts) [facility] ([facility]) Hematocrit 38.2 % 36.0-47.0 Normal (applies to non-numeric resul ts) [facility]) Mean Corpuscular Volume 85.8 fl 80.0-96.0 Normal ( applies to non-numeric results) [facility] ([facility]) Mean Corpuscular Hemoglobin 27.4 pg 27.0-33.0 Norm al (applies to non-numeric results) [facility] ([facility]) Mean Corpuscular HGB Conc 31.9 g/dL 32.0-36.5 Below low normal [facility] ([facility]) Red Cell Distribution Width 15.9 % 11.5-14.5 Above high normal [facility] ([facility]) Platelet Count, Automated 353 10 150-450 Normal (applies to non-numeric results) [facility] ([facility]) Nucleated Red Blood Cell % 0.0 % 0-0 Normal (applies to n on-numeric results) [facility] ([facility]) ID Date Data Source [id number] 05/16/2020 08:35:00 PM EDT [facility] Name Value Range Interpretation Code Description Data Mellisa rce(s) Supporting Document(s) SARS coronavirus 2 RNA [Presence] in Res piratory specimen by YESSY with probe detection NEGATIVE [facility] This lab was ordered by [facility] a nd reported by [facility]. ID Date Data Source [id number] 05/16/2020 06:43:00 PM EDT MEDENT ([facility]) Name Value Range Interpretation Code Description Data Mellisa rce(s) Supporting Document(s) Choriogonadotropin.beta subunit [Moles/volume] in Seru m or Plasma Laboratory test result Normal (applies to non-numeric results) [facility] ([facility]) <content>QUANTITATIVE RESULT QU ALITATIVE INTERPRETATION</content>
<content> </content>
<content><5.0 IU/L NEGATIVE</content>
<content>5.0 - 25.0 IU/L INDETERMINATE</content>
<content>>25.0 IU/L POSITIVE</content>
<content></content> Procedure Social History Code Duration Value Status Description Data Source(s ) Smoking 11/26/2020 12:00:00 AM EDT Non Smoker completed Non Smoke r [facility] ) Vital Signs ID Date Data Source UNK Name Value Range Interpretation Code Description Data Source(s) Body temperature 96.3 [degF] 96.3 [degF] MEDENT ([facility], ) Body temperature 97.6 [degF] 97.6 [degF] [facility] ([facility], ) Diastolic blood pressure 89 mm[Hg] 89 mm[Hg] [facility] ([facility]) Body height 63 [in_i] 63 [in_i] [facility] ([facility]) Systolic blood pressure 157 mm[Hg] 157 mm[Hg] A THEN ([facility]) Body temperature 97.4 [degF] 97.4 [degF] [facility] ) Body weight 234.2 [lb_av] 234.2 [lb_av] [place] ([facility]) Diastolic blood pressure 79 mm[Hg] 79 mm[Hg] [place] ([facility]) Body height 63 [in_i] 63 [in_i] [place] ([facility]) Body mass index (BMI) [Ratio] 41.5 kg/m2 41.5 k g/m2 [facility] ([facility]) Systolic blood pressure 118 mm[Hg] 118 mm[Hg] A THENA ([facility]) Diastolic blood pressure 79 mm[Hg] 79 mm[Hg] [place] ([facility]) Body height 63 [in_i] 63 [in_i] [place] ([facility]) Body mass index (BMI) [Ratio] 41.5 kg/m2 41.5 k g/m2 [place] ([facility]) Systolic blood pressure 118 mm[Hg] 118 mm[Hg] A THENA ([facility]) Body weight 234.2 [lb_av] 234.2 [lb_av] [place] ([facility]) Systolic blood pressure 126 mm[Hg] 126 mm[Hg] M EDENT ([facility]) Diastolic blood pressure 82 mm[Hg] 82 mm[Hg] MEDENT ([facility]) Body height 63 [in_i] 63 [in_i] MEDENT ([facility]) 5'3" Body weight 238.00 [lb_av] 238.00 [lb_av] MEDEN T ([facility]) Body mass index (BMI) [Ratio] 42.2 kg/m2 42.2 k g/m2 MEDENT ([facility]) Heart rate 76 /min 76 /min MED[facility] ([facility]) Respiratory rate 20 /min 20 /min [facility] ( [facility]) Body temperature 98.7 [degF] 98.7 [degF] [facility] ([facility]) Oxygen saturation in Arterial blood by Pulse oximetry 98 % 98 % MED[facility] ([facility]) [place] body weight 115 [lb_av] 115 [lb_av] MEDEN T ([facility]) Systolic blood pressure 126 mm[Hg] 126 mm[Hg] M EDENT ([facility]) Diastolic blood pressure 74 mm[Hg] 74 mm[Hg] MEDENT ([facility]) Heart rate 96 /min 96 /min MEDENT ([facility]) Oxygen saturation in Arterial blood by Pulse oximetry 98.8 % 98.8 % MEDENT ([facility]) Body height 63 [in_i] 63 [in_i] MEDENT ([facility]) 5'3" Body weight 237.00 [lb_av] 237.00 [lb_av] MEDEN T ([facility]) Body mass index (BMI) [Ratio] 42.0 kg/m2 42.0 k g/m2 [facility] ([facility] 18 [facility] 18 [facility] Body temperature 97.0 [degF] 97.0 [degF] MEDENT ([facility]) [place] body weight 115 [lb_av] 115 [lb_av] MEDEN T ([facility]) Body weight 238.6 [lb_av] 238.6 [lb_av] eCW1 ([facility]) Body weight 108.23 kg 108.23 kg W1 ([facility]) Body height 64 [in_i] 64 [in_i] eCW1 ([facility]) Body mass index (BMI) [Ratio] 40.95 kg/m2 40.95 kg/m2 eCW1 ([facility]) Systolic blood pressure 122 mm[Hg] 122 mm[Hg] e CW1 ([facility]) Diastolic blood pressure 82 mm[Hg] 82 mm[Hg] eCW1 ([facility]) Body weight 239.4 [lb_av] 239.4 [lb_av] eCW1 ([facility]) Body height 64 [in_i] 64 [in_i] eCW1 ([facility]) Body mass index (BMI) [Ratio] 41.09 kg/m2 41.09 kg/m2 eCW1 ([facility]) Systolic blood pressure 116 mm[Hg] 116 mm[Hg] e CW1 ([facility]) Diastolic blood pressure 82 mm[Hg] 82 mm[Hg] eCW1 ([facility]) Systolic blood pressure 124 mm[Hg] 124 mm[Hg] M EDENT ([facility] ) Oxygen saturation in Arterial blood by Pulse oximetry 100 % 100 % MEDENT ([facility], ) Diastolic blood pressure 88 mm[Hg] 88 mm[Hg] MEDENT ([facility]) Heart rate 75 /min 75 /min MEDENT ([facility], ) Respiratory rate 16 /min 16 /min [facility] ( [facility], ) Body temperature 98.1 [degF] 98.1 [degF] [facility] ([facility]) Body height 64 [in_i] 64 [in_i] [facility] ([facility]) 5'4" [place] body weight 120 [lb_av] 120 [lb_av] MEDEN T ([facility]) Oxygen saturation in Arterial blood by Pulse oximetry 100 % 100 % [facility] ([facility]) Respiratory rate 16 /min 16 /min [facility] ( [facility]) Body temperature 98.1 [degF] 98.1 [degF] [facility] ([facility]) Body height 64 [in_i] 64 [in_i] [facility] ([facility]) 5'4" [place] body weight 120 [lb_av] 120 [lb_av] MEDEN T ([facility], ) Respiratory rate 18 /min 18 /min [facility] ( [facility]) Body mass index (BMI) [Ratio] 41.7 kg/m2 41.7 k g/m2 [facility] ([facility]) Body temperature 98.8 [degF] 98.8 [degF] [facility] ([facility]) Oxygen saturation in Arterial blood by Pulse oximetry 99 % 99 % [facility] ([facility]) [place] body weight 115 [lb_av] 115 [lb_av] MEDEN T ([facility]) Systolic blood pressure 128 mm[Hg] 128 mm[Hg] M EDENT ([facility]) Body weight 235.50 [lb_av] 235.50 [lb_av] MEDEN T ([facility]) Heart rate 78 /min 78 /min [facility] ([facility]) Diastolic blood pressure 78 mm[Hg] 78 mm[Hg] [facility] ([facility]) Body height 63 [in_i] 63 [in_i] [facility] ([facility]) 5'3" Diastolic blood pressure 93 mm[Hg] 93 mm[Hg] [facility] ([facility]) Oxygen saturation in Arterial blood by Pulse oximetry 95 % 95 % [facility] ([facility]) Body temperature 99.0 [degF] 99.0 [degF] [facility] ([facility]) Body mass index (BMI) [Ratio] 36.4 kg/m2 36.4 k g/m2 [facility] ([facility]) Systolic blood pressure 148 mm[Hg] 148 mm[Hg] [facility] Heart rate 92 /min 92 /min [facility] ([facility]) Respiratory rate 16 /min 16 /min [facility] ( [facility]) Body height 64 [in_i] 64 [in_i] [facility] ([facility]) 5'4" Body weight 212.00 [lb_av] 212.00 [lb_av] MEDEN T ([facility]) [place] body weight 120 [lb_av] 120 [lb_av] MEDEN T ([facility]) Body weight 96.163 kg 96.163 kg [facility] ([facility]) Body surface area Derived from formula 2.01 m2 2.01 m2 [facility] ([facility]) Systolic blood pressure 127 mm[Hg] 127 mm[Hg] M [facility] ([facility]) Diastolic blood pressure 80 mm[Hg] 80 mm[Hg] [facility] ([facility]) Heart rate 88 /min 88 /min [facility] ([facility]) Oxygen saturation in Arterial blood by Pulse oximetry 97 % 97 % [facility] ([facility]) Respiratory rate 16 /min 16 /min [facility] ( [facility]) Body temperature 97.1 [degF] 97.1 [degF] [facility] ([facility]) Body height 64 [in_i] 64 [in_i] [facility] ([facility]) 5'4" Body weight 212.00 [lb_av] 212.00 [lb_av] MEDEN T ([facility]) Body mass index (BMI) [Ratio] 36.4 kg/m2 36.4 k g/m2 [facility] [place] body weight 120 [lb_av] 120 [lb_av] MEDEN T ([facility]) Body weight 96.163 kg 96.163 kg [facility] ([facility]) Body surface area Derived from formula 2.01 m2 2.01 m2 [facility] ([facility]) Respiratory rate 18 /min 18 /min [facility] ( [facility]) Systolic blood pressure 124 mm[Hg] 124 mm[Hg] [facility] Diastolic blood pressure 76 mm[Hg] 76 mm[Hg] [facility] ([facility]) Body height 63 [in_i] 63 [in_i] [facility] ([facility]) 5'3" Heart rate 81 /min 81 /min [facility] ([facility]) Body temperature 99.0 [degF] 99.0 [degF] [facility] ([facility]) Oxygen saturation in Arterial blood by Pulse oximetry 99 % 99 % [facility] ([facility]) [place] body weight 115 [lb_av] 115 [lb_av] MEDEN T ([facility]) Respiratory rate 20 /min 20 /min [facility] ( [facility]) Body temperature 99.4 [degF] 99.4 [degF] [facility]) [place] body weight 115 [lb_av] 115 [lb_av] MEDEN T ([facility]) Oxygen saturation in Arterial blood by Pulse oximetry 99 % 99 % [facility] ([facility]) Systolic blood pressure 132 mm[Hg] 132 mm[Hg] M EDENT ([facility]) Diastolic blood pressure 88 mm[Hg] 88 mm[Hg] [facility] Body height 63 [in_i] 63 [in_i] [facility] ([facility]) 5'3" Body weight 234.00 [lb_av] 234.00 [lb_av] MEDEN T ([facility]) Body mass index (BMI) [Ratio] 41.4 kg/m2 41.4 k g/m2 [facility] Heart rate 92 /min 92 /min MEDENT ([facility]) Diastolic blood pressure 80 mm[Hg] 80 mm[Hg] MEDENT ([facility]) Body height 63 [in_i] 63 [in_i] MEDENT ([facility]) 5'3" Body weight 235.00 [lb_av] 235.00 [lb_av] MEDEN T ([facility]) Body mass index (BMI) [Ratio] 41.6 kg/m2 41.6 k g/m2 MEDENT ([facility]) Heart rate 76 /min 76 /min [facility] ([facility]) Respiratory rate 20 /min 20 /min [facility] ( [facility]) Body temperature 98.4 [degF] 98.4 [degF] MEDENT ([facility]) Oxygen saturation in Arterial blood by Pulse oximetry 98 % 98 % MED[facility] ([facility]) [place] body weight 115 [lb_av] 115 [lb_av] MEDEN T ([facility]) Systolic blood pressure 120 mm[Hg] 120 mm[Hg] M EDENT ([facility]) Systolic blood pressure 124 mm[Hg] 124 mm[Hg] M EDENT ([facility]) Diastolic blood pressure 84 mm[Hg] 84 mm[Hg] MEDENT ([facility]) Body height 63 [in_i] 63 [in_i] MEDENT ([facility]) 5'3" Body weight 232.00 [lb_av] 232.00 [lb_av] MEDEN T ([facility]) Body mass index (BMI) [Ratio] 41.1 kg/m2 41.1 k g/m2 [facility] ([facility]) Heart rate 70 /min 70 /min [facility] ([facility]) Respiratory rate 18 /min 18 /min [facility] ( [facility]) Body temperature 98.4 [degF] 98.4 [degF] MED[facility] ([facility]) Oxygen saturation in Arterial blood by Pulse oximetry 98 % 98 % [facility] ([facility]) [place] body weight 115 [lb_av] 115 [lb_av] MEDEN T ([facility]) Systolic blood pressure 126 mm[Hg] 126 mm[Hg] M EDENT ([facility]) Body height 63 [in_i] 63 [in_i] MEDENT ([facility]) 5'3" Body weight 230.00 [lb_av] 230.00 [lb_av] MEDEN T ([facility]) Body mass index (BMI) [Ratio] 40.7 kg/m2 40.7 k g/m2 MED[facility] ([facility]) Heart rate 72 /min 72 /min [facility] ([facility]) Respiratory rate 18 /min 18 /min [facility] ( [facility]) Body temperature 98.9 [degF] 98.9 [degF] MED[facility] ([facility]) Oxygen saturation in Arterial blood by Pulse oximetry 98 % 98 % [facility] ([facility]) [place] body weight 115 [lb_av] 115 [lb_av] MEDEN T ([facility]) Diastolic blood pressure 74 mm[Hg] 74 mm[Hg] MEDENT ([facility]) Body temperature 98.3 [degF] 98.3 [degF] MED[facility] ([facility]) Body weight 225.38 [lb_av] 225.38 [lb_av] MEDEN T ([facility]) Body mass index (BMI) [Ratio] 39.9 kg/m2 39.9 k g/m2 MED[facility] ([facility]) Heart rate 74 /min 74 /min [facility] ([facility]) Respiratory rate 16 /min 16 /min MED[facility] ( [facility]) Oxygen saturation in Arterial blood by Pulse oximetry 98 % 98 % MED[facility] ([facility]) [place] body weight 115 [lb_av] 115 [lb_av] MEDEN T ([facility]) Systolic blood pressure 128 mm[Hg] 128 mm[Hg] M EDENT ([facility]) Diastolic blood pressure 80 mm[Hg] 80 mm[Hg] MEDENT ([facility]) Body height 63 [in_i] 63 [in_i] EDUARDO ([facility] 5'3" Patient Treatment Plan of Care Planned Activity Planned Date Details Description Data Source (s) Alprazolam 0.5 MG Oral Tablet [Xanax] [place] ([facility]) Alprazolam 0.5 MG Oral Tablet [Xanax] [place] ([facility])
--- OUTSIDE RECORDS SUMMARY | 2021-01-18 05:49 | CCD | Continuity of Care Document ---
Author Author Kristin SCHREIBER MD Organization Unknown Address [address] , [place] [address] Phone [phone] Care Team Providers Care Preschool Assistant Director Name Role Phone Ananda Newton M.D. AUTM Corina Falcon D.O. AUTM AUTM Unavailable Problems Description No Information Available Social History Type Date Description Comments Sex Unknown ETOH Use Consumes 1 glass of wine per wee k ETOH Use 1-2 A Week Tobacco Use Start: Unknown Non Smoker Recreational Drug Use Denies Drug Use Smoking Status Reviewed: 11/26/20 Non Smoker Exercise Type/Frequency Does not exercise Allergies, Adverse Reactions, Alerts Active Allergies Criticality Reaction | Severity Comments Date Bactrim Unable to assess criticality HIVES 06/29/2015 Ceclor Unable to assess criticality HIVES 06/29/2015 Medications Active Medications SIG Qnty Indications Ordering Provide r Date Fluoxetine HCL 10mg Capsules 1 by mouth on day 14 of menstrual cycle, continue for 14 days 30caps F32.81 Leticia Doll CNM 07/06/2018 Mirena (52 MG) 20mcg/24HR IUD Unknown Gabapentin 300mg Capsules Take One Capsule By Mouth AT Bedtime For 3 Days Then 1 Capsule Two Times A Day For 3 Days Then 1 Capsule Three Times A Day Unknown Zolpidem Tartrate 10mg Tablets Take One Tablet By Mouth Before Bed Maximum Daily Dose 1 Unknown Fluticasone Propionate 50mcg/Act Suspension [place] [address] Take One Capsule By Mouth Every Day Unknown 00/00 /0000 Immunizations Description No Information Available Vital Signs Date Vital Result Comment 11/26/2020 8:46am Body Temperature 96.3 F 11/04/2020 8:16am Body Temperature 97.6 F Results Description No Information Available Procedures Date Code Description Status 11/04/2020 64059 Office/Outpatient Established Lo w MDM 20-29 Min Completed 10/14/2020 18560 Office/Outpatient Established Lo w MDM 20-29 Min Completed Medical Devices Description No Information Available Encounters Type Date Location Provider Dx Diagnosis Office Visit 11/04/2020 8:30a [facility] Matt Schreiber MD S82.851D Displ trimalleol fx r low leg, subs for clos fx w routn heal R22.41 Localized swelling, mass and lump, right lower limb Office Visit 10/14/2020 9:30a [facility] Matt Schreiber MD S82.851D Displ trimalleol fx r low leg, subs for clos fx w routn heal Office Visit 07/15/2020 9:00a [facility] Matt Schreiber MD S82.851D Displ trimalleol fx r low leg, subs for clos fx w routn heal Office Visit 06/23/2020 8:00a [facility] Matt Schreiber MD Z48.02 Encounter for removal of sutures S82.851D Displ trimalleol fx r low le g, subs for clos fx w routn heal Office Visit 05/27/2020 3:30p [facility] Matt Schreiber MD S82.851D Displ trimalleol fx r low leg, subs for clos fx w routn heal Assessments Date Code Description Provider 11/04/2020 S82.851D Displaced trimalleol ar fracture of right lower leg, subsequent encounter for closed fracture with routine healing Matt Schreiber MD 11/04/2020 R22.41 Soft tissue swelling of ankle aida int Matt Schreiber MD 10/14/2020 S82.851D Displaced trimalleol ar fracture of right lower leg, subsequent encounter for closed fracture with routine healing Matt Schreiber MD 07/15/2020 S82.851D Displaced trimalleol ar fracture of right lower leg, subsequent encounter for closed fracture with routine healing Matt Schreiber MD 06/23/2020 Z48.02 Removal of suture Matt Schreiber MD 06/23/2020 S82.851D Displaced trimalleol ar fracture of right lower leg, subsequent encounter for closed fracture with routine healing Matt Schreiber MD 05/27/2020 S82.851D Closed fracture ankle, trimalleo lar, low fibular fracture Matt Schreiber MD Plan of Treatment No Information Available Functional Status Functional Condition Comment Date Status Brace fracture boot Active knee scooter Active Mental Status Description No Information Available Referrals Description No Information Available"
--- OUTSIDE RECORDS SUMMARY | 2021-01-18 05:49 | CCD ---
Author Organization Unknown Address [address] [place] [address] Phone [phone] Care Team Providers Care Shipping Supervisor Name Role Phone CHIQUIS ARIAS DO 3 [phone] Allergies Code Code System Name Reaction Severity Status Onset Cat Dander Cough Moderate Active 6 RxNorm Cefaclor Rash Moderate Active Sulfa (Sulfonamide Antibiotics) Rash Moderate Active Medications Name Status Start Date Stop Date acamprosate 333 mg tablet,delayed releas e TAKE TWO TABLETS BY MOUTH EVERY 8 HOURS Active Not available Aleve 220 mg capsule Take 1 capsule 4 times a day by oral route as needed. Active Not available fluticasone 0.05 % lotion-emollient combo no.65 cream, topical k it Active Not available Multi Vitamin on tab daily Active Not available Neurontin 300 mg capsule Take 1 capsule 3 times a day by oral route. Active Not available omeprazole 40 mg capsule,delayed release Take 1 capsule every day by oral route. Active Not available Voltaren Arthritis Pain 1 % topical gel APPLY 2 GRAMS TO THE AFFECTED AREA(S) BY TOPICAL ROUTE 4 TIMES PER DAY Active Not available Xanax 0.5 mg tablet Take 1 tablet twice a day by oral route as needed. Completed 09/28/2020 Zyrtec 10 mg capsule Take 1 capsule every day by oral route. Active Not available Problems None recorded. Procedures Date Name Performed by 07/14/2016 Gastric Bypass for Obesity Information n ot available 06/17/2013 Delivery Information not avai lable Open Reduction of Dislocatio n of Ankle Notes: by Dr Engle in April 2020 Information not available Results Lab Results None recorded. Past Encounters 10/21/2020 Pain of Right Ankle Joint; Closed Trimalleolar Fracture of Right Ankle; Neuropathic Pain Dariana Alicia MEDICAL REFERRAL COORDINATOR: [address], [place] [address], Ph. 09/28/2020 Pain of Right Ankle Joint; Closed Trimalleolar Fracture of Right Ankle; Neuropathic Pain Yifan Schofield MD: [id number] [facility] [address], [place] [address], Ph. Social History Tobacco Smoking Status Never Smoker Vaccine List None recorded. Plan of Care Reminders Provider Appointments None recorded. Lab None recorded. Referral None recorded. Procedures None recorded. Surgeries None recorded. Imaging None recorded. Vitals 10/21/2020 01:15PM FOLLOW-UP Height Blood Pressure 5 ft 3 in 157/89 mm[Hg] 09/28/2020 01:30PM NEW PATIENT Height Weight BMI Blood Pressure 5 ft 3 in 234.2 lbs 41.5 kg/m2 118/79 mm[Hg]
--- OUTSIDE RECORDS SUMMARY | 2021-01-18 05:49 | CCD | Continuity of Care Document ---
Author Author Kristin SCHREIBER MD Organization Unknown Address [address] , [place] [address] Phone [phone] Care Team Providers Care Mill Oiler Name Role Phone Ananda Newton M.D. AUTM Corina Falcon D.O. AUTM [phone] AUTM Unavailable Problems Description No Information Available Social History Type Date Description Comments Sex Unknown ETOH Use Consumes 1 glass of wine per wee k ETOH Use 1-2 A Week Tobacco Use Start: Unknown Non Smoker Recreational Drug Use Denies Drug Use Smoking Status Reviewed: 11/26/20 Non Smoker Exercise Type/Frequency Does not exercise Allergies and adverse reactions Active Allergies Criticality Reaction | Severity Comments [...] One Capsule By Mouth Every Day Unknown Immunizations Description No Information Available Vital Signs Date Vital Result Comment 11/26/2020 8:46am Body Temperature 96.3 F 11/04/2020 8:16am Body Temperature 97.6 F Results Description No Information Available Procedures Date Code Description Status 11/26/2020 03043 Office/Outpatient Established Lo w MDM 20-29 Min Completed 11/04/2020 85362 Office/Outpatient Established Lo w MDM 20-29 Min Completed 10/14/2020 39241 Office/Outpatient Established Lo w MDM 20-29 Min Completed Medical Devices Description No Information Available Encounters Type Date Location Provider Dx Diagnosis Office Visit 11/26/2020 9:00a [facility] Matt Schreiber MD S82.851D Displ trimalleol fx r low leg, subs for clos fx w routn heal R22.41 Localized swelling, mass and lump, right lower limb Office Visit 11/04/2020 8:30a [facility] Matt Schreiber MD S82.851D Displ trimalleol fx r low leg, subs for clos fx w routn heal R22.41 Localized swelling, mass and lump, right lower limb Office Visit 10/14/2020 9:30a [facility] Matt Schreiber MD S82.851D Displ trimalleol fx r low leg, subs for clos fx w routn heal Office Visit 07/15/2020 9:00a [facility] Matt Schreiber MD S82.851D Displ trimalleol fx r low leg, subs for clos fx w routn heal Office Visit 06/23/2020 8:00a [facility] Matt Schreiber MD Z48.02 Encounter for removal of sutures S82.851D Displ trimalleol fx r low le g, subs for clos fx w routn heal Assessments Date Code Description Provider 11/26/2020 S82.851D Displaced trimalleol ar fracture of right lower leg, subsequent encounter for closed fracture with routine healing Matt Schreiber MD 11/26/2020 R22.41 Soft tissue swelling of ankle aida int Matt Schreiber MD 11/04/2020 S82.851D Displaced trimalleol ar fracture of [...] fracture with routine healing Matt Schreiber MD Plan of Treatment Future Appointment(s):* 02/17/2021 9:30 am - Matt Schreiber MD at [facility] 11/26/2020 - Matt Schreiber MD* S82.851D Displaced trimalleolar fracture of right lower leg, subsequent encounter for closed fracture with routine healing* Comments:* The patient continues with her physical therapy. She is undergone significant testing and imaging to determine why she might be still having some pain and swelling in her right ankle. She does state that there is some improvement in the swelling does have appear to have decreased since her last visit. Uneven ground appears to be the most aggravating factor. I have suggested that she continue with her physical therapy and proprioceptive training and strengthening. We will see her for follow-up in 3 months time or 4 months time depending on what is most convenient for her for reevaluation. She will contact the office if she has any concerns in the interim. She is in agreement with the treatment plan. * Follow up:* 3 to 4 months reevaluation * R22.41 Soft tissue swelling of ankle joint Functional Status Functional Condition Comment Date Status Brace fracture boot Active knee scooter Active Mental Status Description No Information Available Referrals Description No Information Available"
--- OUTSIDE RECORDS SUMMARY | 2021-01-18 05:49 | CCD | Continuity of Care Document ---
Author Author Kristin SCHREIBER MD Organization Unknown Address [address] , [place] [address] Phone [phone] Care Team Providers Care Do All Operator Name Role Phone Ananda Newton M.D. AUTM [phone] Corina Falcon D.O. AUTM AUTM Unavailable Problems Description No Information Available Social History Type Date Description Comments Sex Unknown ETOH Use Consumes 1 glass of wine per wee k ETOH Use 1-2 A Week Tobacco Use Start: Unknown Non Smoker Recreational Drug Use Denies Drug Use Smoking Status Reviewed: 11/04/20 Non Smoker Exercise Type/Frequency Does not exercise [...] By Mouth Every Day Unknown 00/00 /0000 History Medications Oxycodone HCL 5mg Capsules 1 tab by mouth every 4 hours as needed 18caps Matt Schreiber MD 021 - 06/16/2020 Immunizations Description No Information Available Vital Signs Date Vital Result Comment 11/04/2020 8:16am Body Temperature 97.6 F 10/14/2020 8:53am Body Temperature 97.4 F Results Description No Information Available Procedures Date Code Description Status 11/04/2020 93289 Office/Outpatient Established Lo w MDM 20-29 Min Completed 10/14/2020 71279 Office/Outpatient Established Lo w MDM 20-29 Min Completed Medical Devices Description No Information Available Encounters Type Date Location Provider Dx Diagnosis Office Visit 11/04/2020 8:30a [facility] Matt Schreiber MD S82.851D Displ trimalleol fx r low leg, subs for clos fx w routn heal R22.41 Localized swelling, mass and lump, right lower limb Office Visit 10/14/2020 9:30a [facility] Matt Schreiber MD S82.851D Displ trimalleol fx r low leg, subs for clos fx w routn heal Office Visit 07/15/2020 9:00a [facility] Matt Schreiber MD S82.851D Displ trimalleol fx r low leg, subs for clos fx w routn heal Office Visit 06/23/2020 8:00a [facility] Matt Schreiber MD Z48.02 Encounter for removal of sutures S82.851D Displ trimalleol fx r low le g, subs for clos fx w routn heal Office Visit 05/27/2020 3:30p [facility] Matt Schreiber MD S82.851D [...] fracture Matt Schreiber MD Plan of Treatment 11/04/2020 - Matt Schreiber MD* S82.851D Displaced trimalleolar fracture of right lower leg, subsequent encounter for closed fracture with routine healing* New Xrays:* XR Ankle Complete Minimum 3 Views Right, Ordered: 11/04/20 * Comments:* The patient demonstrates some persistent pain regardless of activity with swelling to the anterior ankle joint. There is no obvious joint effusion on CT imaging and no obvious complication associated with the open reduction internal fixation. Fractures appear to be healing well. Stress views of the ankle do not show any instability nor is there any significant instability noted on physical exam. I would like the patient to try a lace up ankle brace to see if this improves her pain or discomfort while we order an MRI to evaluate her significant soft tissue swelling. * Follow up:* Post MRI * R22.41 Soft tissue swelling of ankle joint* New Xrays:* MRI Ankle W/O Contrast Right, Ordered: 11/04/20 * Comments:* The patient demonstrates persistent swelling and pain in the anterior lateral aspect of the ankle. There is not appear to be any bony instability noted on x-ray stress views of the right ankle. I would like to see if there is some sort of soft tissue injury there and have ordered an MRI with metal subtraction to evaluate this. * Follow up:* Follow-up post right ankle MRI Functional Status Functional Condition Comment Date Status Brace fracture boot Active knee scooter Active Mental Status Description No Information Available Referrals Description No Information Available"
--- OUTSIDE RECORDS SUMMARY | 2021-01-18 05:49 | CCD | Continuity of Care Document ---
Author Author Kirstin SCHREIBER MD Organization Unknown Address [address] , [place] [address] Phone [phone] Care Team Providers Care Early Learning Teacher Name Role Phone Ananda Newton M.D. AUTM [phone] Corina Falcon D.O. AUTM AUTM Unavailable [...] Information Available Procedures Date Code Description Status 10/14/2020 37917 Office/Outpatient Established Lo w MDM 20-29 Min Completed Medical Devices Description No Information Available Encounters Type Date Location Provider Dx Diagnosis Office Visit 10/14/2020 9:30a [facility] Matt Schreiber MD S82.851D Displ trimalleol fx r low leg, subs for clos fx w routn heal Office Visit 07/15/2020 9:00a [facility] Matt Schreiber MD S82.851D Displ trimalleol fx r low leg, subs for clos fx w routn heal Office Visit 06/23/2020 8:00a [facility] Matt Schreiber MD Z48.02 Encounter for removal of sutures S82.851D Displ trimalleol fx r low le g, subs for clos fx w routn heal Office Visit 05/27/2020 3:30p [facility] Matt Schreiber MD S82.851D Displ trimalleol [...] Minimum 3 Views Right, Ordered: 11/04/20 * R22.41 Soft tissue swelling of ankle joint* Comments:* The patient demonstrates persistent swelling and [...]
--- NOTE | 2021-01-18 06:26 | ECGEPIP ---
[facility] - ED Test Date: 2021-01-18 Pat Name: ANDRES BUSTAMANTE Department: Room: - Gender: Female Svp Chief Marketing Officer: iggy : 1985 Requested By: JOSY Hernandez Order Number: [id number] Reading MD: Ananda Mir Measurements Intervals [place] Rate: 117 P: 34 NE: 148 QRS: 50 QRSD: 88 T: -48 QT: 340 QTc: 474 Interpretive Statements Sinus tachycardia T wave abnormality, consider inferior/lateral ischemia Baseline artifact may affect reading Baseline wandering may affect reading Prolonged QTc cw 05/16/[address] T wave changes vs ischemia CLINICAL CORRELATION ADVISED Electronically Signed on 01-18-2021 6:26:19 EST by Ananda Mir
[2021-01-18] MEDS ORDERED: MORPHINE 2 MG/ML 1ML VIAL (J2270) IV ONE (06:50)
[2021-01-18 06:59] LABS: LIPASE 167 U/L (73-393)
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
[2021-01-18 07:40] VITALS: BP 141/79
--- NOTE | 2021-01-19 06:33 | ED PDOC ---
Post-Departure Follow-Up ct head faxed to dr fontanez for fu Ananda Conde MD Jan 19, 2021 06:32
== END 2021-01-18 07:52 | disposition home or self-care (01) ==
LOC: EDBD 02:01 → M ED 02:01
DX: S01.511A Laceration without foreign body of lip, initial encounter (principal); V48.5XXA Car driver injured in noncollision transport accident in traffic accident, initial encounter; Y92.9 Unspecified place or not applicable; Y93.9 Activity, unspecified; Y99.9 Unspecified external cause status; R94.5 Abnormal results of liver function studies; R00.0 Tachycardia, unspecified; I10 Essential (primary) hypertension; Z79.82 Long term (current) use of aspirin; Z79.899 Other long term (current) drug therapy; Z88.2 Allergy status to sulfonamides; Z88.1 Allergy status to other antibiotic agents

== ENCOUNTER → 2021-01-20 | Outpatient (CLI) | payer OTHER | LOC: M OUTALCOH 07:28 | PROVIDERS: ATTEND Psychiatry & Neurology Psychiatry | DX: Z03.89 Encounter for observation for other suspected diseases and conditions ruled out (principal) ==

== ENCOUNTER 2021-02-25 11:00 | Outpatient (RCR) | payer OTHER | END 2021-02-26 | LOC: M OUTALCOH 11:00 | PROVIDERS: ATTEND Psychiatry & Neurology Psychiatry | DX: F10.10 Alcohol abuse, uncomplicated (principal) | CPT/HCPCS: 90832; 90834; H0050 ==

== ENCOUNTER → 2021-03-29 | Outpatient (RCR) | payer OTHER ==
[~2021-03-29] MED LIST changes: -OMEP-221 PO; +OMEP40CA5 PO
== END ==
LOC: M OUTALCOH 03-04 10:00
PROVIDERS: ATTEND Psychiatry & Neurology Psychiatry
DX: F10.10 Alcohol abuse, uncomplicated (principal)

== ENCOUNTER 2021-04-08 09:16 | Outpatient (RCR) | payer OTHER | END 2021-04-26 | LOC: M OUTALCOH 09:16 | PROVIDERS: ATTEND Psychiatry & Neurology Psychiatry | DX: F10.10 Alcohol abuse, uncomplicated (principal) ==

== ENCOUNTER 2021-05-10 08:52 | Outpatient (RCR) | payer OTHER | END 2021-05-27 | LOC: M OUTALCOH 08:52 | PROVIDERS: ATTEND Psychiatry & Neurology Psychiatry | DX: F10.10 Alcohol abuse, uncomplicated (principal) ==

== ENCOUNTER 2021-08-11 10:38 | Outpatient (RCR) | payer OTHER | END 2021-08-26 | LOC: M OUTALCOH 10:38 | PROVIDERS: ATTEND Psychiatry & Neurology Psychiatry | DX: F10.10 Alcohol abuse, uncomplicated (principal) ==

== ENCOUNTER → 2021-11-29 | Outpatient (REF) | payer OTHER | LOC: M SFHCWAGY 12:47 | PROVIDERS: ATTEND Advanced Practice Midwife | DX: Z12.4 Encounter for screening for malignant neoplasm of cervix (principal) | CPT/HCPCS: 87624; G0123; G0463 ==

== ENCOUNTER 2022-06-27 16:30 | Emergency (ER) | payer OTHER ==
[~2022-06-27 16:30] MED LIST changes: +ARTIDRO4 OU; +FLUT50SP17; -FLUTISP; -POLYOPD OU
[2022-06-27] MEDS ORDERED: BUPR300T92 (16:38)
[2022-06-27] MEDS ORDERED: AMOX875T2 (16:38)
[2022-06-27] MEDS ORDERED: TRAZ-252 (16:38)
[2022-06-27] MEDS ORDERED: LEVOTAB10 (16:38)
[2022-06-27] MEDS ORDERED: LIDOCAINE 5% (LIDODERM) PATCH TD ONE (18:10)
[2022-06-27] MEDS ORDERED: ONDANSETRON 4MG 2ML VIAL IV ONE (18:10)
[2022-06-27] MEDS ORDERED: GI COCKTAIL 50ML BTL(HYOSCYAMINE/MAALOX/LIDOCAINE VISCOUS)(1:3:1) PO ONE (18:10)
[2022-06-27 18:54] LABS: BASO # 0.1 10^3/uL (0.0-0.2); BASO % 1.1 % (0.0-1.0); EOS # 0.1 10^3/uL (0.0-0.5); EOS % 1.9 % (0.0-3.0); HEMATOCRIT 45.8 % (36.0-47.0); HEMOGLOBIN 15.7 g/dl (12.0-15.5); LYMPH # 2.6 10^3/uL (1.5-5.0); LYMPH % 36.1 % (24.0-44.0); MEAN CORPUSCULAR HEMOGLOBIN 30.5 pg (27.0-33.0); MEAN CORPUSCULAR HGB CONC 34.3 g/dl (32.0-36.5); MEAN CORPUSCULAR VOLUME 89.1 fl (80.0-96.0); MONO # 0.5 10^3/uL (0.0-0.8); MONO % 7.1 % (2.0-8.0); NEUTROPHILS # 3.9 10^3/uL (1.5-8.5); NEUTROPHILS % 53.5 % (36.0-66.0); PLATELET COUNT, AUTOMATED 390 10^3/uL (150-450); RED BLOOD COUNT 5.14 10^6/uL (4.00-5.40); WHITE BLOOD COUNT 7.3 10^3/uL (4.0-10.0)
[2022-06-27 19:16] LABS: LIPASE 121 U/L (12-53)
[2022-06-27 19:18] LABS: ALBUMIN 4.1 G/DL (3.2-5.2); ALKALINE PHOSPHATASE 102 U/L (46-116); ALT/SGPT 133 U/L (7.0-40); AST/SGOT 182 U/L (<34); BILIRUBIN,DIRECT 0.2 MG/DL (<0.4); BILIRUBIN,TOTAL 0.4 MG/DL (0.3-1.2); CK-MB VALUE MASS < 1.0 NG/ML (<3.6); CPK CREATINE PHOSPHOKINASE 91 U/L (34-145); MB/CK RELATIVE INDEX 1.09 (< OR =4); TOTAL PROTEIN 8.2 G/DL (5.7-8.2)
[2022-06-27] MEDS ORDERED: KETOROLAC 30 MG/ML 1ML VIAL IV ONE (20:10)
[2022-06-27] MEDS ORDERED: diazePAM 10 MG TAB PO ONE (20:10)
[2022-06-27 20:33] LABS: HEPATITIS B SURFACE ANTIGEN NEGATIVE (NEGATIVE)
[2022-06-27 20:54] LABS: HEPATITIS C VIRUS ABY INDEX 0.1 INDEX (<0.8)
[2022-06-27 20:55] LABS: HEPATITIS B CORE ANTIBODY IGM NEGATIVE (NEGATIVE)
[2022-06-27] MEDS ORDERED: ISOVUE-370 76% 100ML VIAL As Ordered ONE (21:02)
[2022-06-27] MEDS ORDERED: ASPE4PAD TOP (22:39)
[2022-06-27] MEDS ORDERED: METH-1165 PO (22:39)
[2022-06-27] MEDS ORDERED: ONDA4TAB6 PO (22:39)
[2022-06-27] MEDS ORDERED: NAPR-837 PO (22:39)
[2022-06-27 22:58] VITALS: BP 147/88
== END 2022-06-27 23:00 | disposition home or self-care (01) ==
LOC: M ED 16:30
DX: R07.89 Other chest pain (principal); R11.10 Vomiting, unspecified; R19.7 Diarrhea, unspecified; K21.9 Gastro-esophageal reflux disease without esophagitis; Z98.84 Bariatric surgery status; Z79.899 Other long term (current) drug therapy; Z88.2 Allergy status to sulfonamides; Z88.1 Allergy status to other antibiotic agents
CPT/HCPCS: 71046; 71275; 80047; 80076; 82550; 82553; 83690; 84484; 84702; 85025; 85379; 86705; 86709; 86803; 87340; 93005; 96374; 96375; 99284; J1885; J2405; Q9967